=== PATIENT | female | born 1965 | race Caucasian/White ===

== ENCOUNTER → 2018-10-17 17:35 | Outpatient (CLI) | payer OTHER, SELFPAY | PROVIDERS: Family Provider Family Medicine; PCP Family Medicine; Referring Provider Nurse Practitioner Family; Visit Provider Nurse Practitioner Family | DX: L02.91 Cutaneous abscess, unspecified (principal) | CPT/HCPCS: 87070; 87205 ==

== ENCOUNTER → 2018-11-08 11:55 | Outpatient (CLI) | payer OTHER, SELFPAY ==
--- NOTE | 2018-11-08 12:01 | RAD_ITS ---
STUDY: X-RAY CHEST REASON FOR EXAM: Female, 53 years old. Acute bronchitis. TECHNIQUE: PA and lateral views of the chest. COMPARISON: Prior comparison studies are not available for review at this time. FINDINGS: The lungs are clear and expanded. There is no demonstrated pleural abnormality. Normal size heart. Normal mediastinum and anastasia. Normal visualized pulmonary arteries. Normal visualized aortic arch and descending thoracic aorta. There are degenerative changes of the visualized thoracic spine. Normal visualized ribs, clavicles, and shoulders. There is no demonstrated abnormality of the visualized soft tissue structures of the upper abdomen. RAD/Chest PA and Lateral IMPRESSION: No active pulmonary disease. Electronically Signed: Mir Trujillo MD at 11:59 EDT Tel , Service support ,
== END ==
PROVIDERS: Family Provider Family Medicine; PCP Family Medicine; Referring Provider Family Medicine; Visit Provider Family Medicine
DX: J20.9 Acute bronchitis, unspecified (principal)
CPT/HCPCS: 71046

== ENCOUNTER → 2019-03-19 16:28 | Outpatient (CLI) | payer OTHER, SELFPAY ==
[2019-03-19 17:57] LABS: Anion Gap 7 (5-15); BUN 15 mg/dL (7-18); BUN/Creat Ratio 20.7 RATIO (10-20); Calcium,Total 8.8 mg/dL (8.5-10.1); Chloride 103 mmol/L (98-107); Creatinine, Serum 0.72 mg/dL (0.55-1.02); EST Glomerular Filtration Rate 90 mL/min (>60); Est Glom Filt Rate - Afr Amer 108 mL/min (>60); Glucose 99 mg/dL (74-106); Potassium 3.2 mmol/L (3.5-5.1); Sodium Level 136 mmol/L (136-145)
== END ==
PROVIDERS: Family Provider Family Medicine; PCP Family Medicine; Referring Provider Family Medicine; Visit Provider Nurse Practitioner Family
DX: I10 Essential (primary) hypertension (principal)
CPT/HCPCS: 36415; 80048

== ENCOUNTER → 2020-01-05 07:37 | Outpatient (CLI) | payer OTHER, SELFPAY ==
[2020-01-05 10:17] LABS: AST(SGOT) 21 U/L (15-37); Alanine Aminotransfer ALT/SGPT 23 U/L (13-56); Albumin, Serum 3.6 g/dL (3.2-5.0); Alkaline Phosphatase 90 U/L (45-117); Anion Gap 6 (5-15); BUN 13 mg/dL (7-18); BUN/Creat Ratio 19.8 RATIO (10-20); Calcium,Total 8.6 mg/dL (8.5-10.1); Chloride 106 mmol/L (98-107); Cholesterol 139 mg/dL (200); Creatinine, Serum 0.66 mg/dL (0.55-1.02); EST Glomerular Filtration Rate 100 mL/min (>60); Est Glom Filt Rate - Afr Amer 121 mL/min (>60); Globulin 3.6 g/dL (2.2-4.2); Glucose 111 mg/dL (74-106); High Density Lipoprotein 36 mg/dL; Potassium 3.8 mmol/L (3.5-5.1); Protein, Total 7.2 g/dL (6.4-8.2); Sodium Level 139 mmol/L (136-145); Triglycerides 138 mg/dL; Very Low Density Lipoprotein 28 mg/dL (5-40)
== END ==
PROVIDERS: PCP Family Medicine; Referring Provider Family Medicine; Visit Provider Family Medicine
DX: I10 Essential (primary) hypertension (principal)
CPT/HCPCS: 36415; 80053; 80061

== ENCOUNTER → 2020-04-20 | Outpatient (CLI) | payer OTHER, SELFPAY ==
--- NOTE | 2020-04-19 | TISS_PTH ---
PATIENT: NO HORNER LOC: [facility] U#:[id number] AGE/SX: 54/F ROOM: RE04/20/[address]: Dr. Connor Watson MD : 1965 BED: DIS: 04/20/2020 SPEC #: [id number] RECD: 04/20/20 13:06 STATUS: MARCUS KASIA #: [id number] BRITT: 04/19/20 00:[address]: Connor Watson DEPT: SURGICAL PATHOLOGY RECD BY: Nancy Felipe Tissues: TISSUE SURGICALLY REMOVED Procedures: Surgery Specimen Level IV HEADER OPERATION: Punch biopsy PRE-OP DIAGNOSIS: Skin neoplasm TISSUE SUBMITTED: Skin neoplasm MICROSCOPIC DIAGNOSIS Skin lesion, not further specified, punch biopsy: Mild dermal fibrosis. Separate fragment of keratin debris. See comment. AM:yamileth 04/21/20 COMMENT An inclusion cyst is likely. Clinical correlation is suggested. MICROSCOPIC DESCRIPTION Slides are reviewed. GROSS DESCRIPTION Received is one container labeled with the patient's name and not further designated. The specimen consists of a piece of edwards-brown skin measuring 0.7 x 0.5 x 0.5 cm. The skin surface shows verrucous changes. The specimen is inked, bisected and submitted entirely in one cassette. / SJ:rg 04/20/20 TC:5 CPT: 72202
== END | disposition home or self-care (01) ==
LOC: LABSPEC 10:04
PROVIDERS: PCP Family Medicine; Referring Provider Family Medicine; Visit Provider Family Medicine
DX: L90.5 Scar conditions and fibrosis of skin (principal)
CPT/HCPCS: 88305

== ENCOUNTER → 2020-08-13 | Outpatient (CLI) | payer OTHER, SELFPAY ==
--- NOTE | 2020-08-13 10:40 | LES_PTH ---
PATIENT: NO HORNER LOC: [facility] U#:[id number] AGE/SX: 54/F ROOM: RE08/13/[address]: Dr. Connor Watson MD : 1965 BED: DIS: 08/13/2020 SPEC #: [id number] RECD: 08/13/20 15:12 STATUS: MARCUS KASIA #: [id number] BRITT: 08/13/20 10:[address]: Connor Watson DEPT: SURGICAL PATHOLOGY RECD BY: Lidia Guillen Tissues: Skin, NOS Procedures: Surgery Specimen Level IV HEADER OPERATION: Biopsy PRE-OP DIAGNOSIS: Left ax, atypical mole TISSUE SUBMITTED: Left ax MICROSCOPIC DIAGNOSIS Skin and soft tissue, left ax, biopsy: Capillary hemangioma. AM:yamileth 08/17/2020 MICROSCOPIC DESCRIPTION Slides are reviewed. GROSS DESCRIPTION Received is one container labeled with the patient's name and not further designated. The specimen consists of dark edwards soft tissue measuring 0.7 x 0.3 x 0.3 cm. The specimen is inked, bisected and totally submitted in one cassette. / AM:yamileth 08/16/20 TC:5 CPT: 85100
== END | disposition home or self-care (01) ==
LOC: LABSPEC 15:27
PROVIDERS: PCP Family Medicine; Referring Provider Family Medicine; Visit Provider Family Medicine
DX: D22.5 Melanocytic nevi of trunk (principal)
CPT/HCPCS: 88305

== ENCOUNTER → 2020-10-08 07:59 | Outpatient (CLI) | payer OTHER, SELFPAY ==
[2020-10-08 10:22] LABS: Hemoglobin A1c 6.3 % (3.8-5.6)
[2020-10-08 10:34] LABS: AST(SGOT) 18 U/L (15-37); Alanine Aminotransfer ALT/SGPT 31 U/L (13-56); Albumin, Serum 3.7 g/dL (3.2-5.0); Alkaline Phosphatase 94 U/L (45-117); Anion Gap 5 (5-15); BUN 17 mg/dL (7-18); BUN/Creat Ratio 24.7 RATIO (10-20); Chloride 106 mmol/L (98-107); Cholesterol 166 mg/dL (200); Creatinine, Serum 0.69 mg/dL (0.55-1.02); EST Glomerular Filtration Rate 94 mL/min (>60); Est Glom Filt Rate - Afr Amer 114 mL/min (>60); Globulin 3.6 g/dL (2.2-4.2); Glucose 118 mg/dL (74-106); High Density Lipoprotein 42 mg/dL; Potassium 3.6 mmol/L (3.5-5.1); Protein, Total 7.3 g/dL (6.4-8.2); Sodium Level 138 mmol/L (136-145); Triglycerides 129 mg/dL; Very Low Density Lipoprotein 26 mg/dL (5-40)
== END ==
PROVIDERS: PCP Family Medicine; Referring Provider Family Medicine; Visit Provider Family Medicine
DX: I10 Essential (primary) hypertension (principal); R73.01 Impaired fasting glucose
CPT/HCPCS: 36415; 80053; 80061; 83036

== ENCOUNTER 2021-05-25 16:00 | Outpatient (RCR) | payer OTHER, SELFPAY ==
--- NOTE | 2021-04-08 09:00 | HP.PTEVAL ---
Patient's Visit Information NO HORNER is a 55 year old F referred to Physical Therapy by ROBERTO CERNA with a diagnosis of R achilles tendonitis.. Date of Evaluation: 04/08/21 Physical Therapist: Kd Fan, BENITA, OCS, CSCS - Visit Plan Frequency: 2-3x /Week Duration: 4-6 Weeks Plan: 2-3x/week for 4 -6 weeks for... 1. US non thermal to R achilles. 2. rollout and stretch gastroc soleus R. 3. eccentric strength R achilles to otlerance. Consider EPAT and or iontophoresis if patient desires(uncoverd by insurance). Heel lift R shoe to diminish stress and activitiy modification, temporary heel lift put in and patient may need more permanent solution. - Subjective Has heel spurs on R achilles. 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 It has hurt for about a year insidiously. Pain is R achilles s 9/10 with standing and walking alot. Pretty comfortable at rest. It is hard to walk, very stiff in morning and takes extra time. Sleeping is OK. Has a cream to put on it from doctor Diclofenac. It seems to help a little bit. No other treatments. Had laser therapy at doctors office and it may have helped a little bit. Works at [employer] at [employer] on feet 8 hour shifts , worse after shift. Hobbies: Take care of mom with demential. Doing dishes and housework at home is paiful. Steps at home are painful to do them. Basic ADLs are getting doen but painfully. - Pain R achilles Pain Intensity (Out of 10): 0 Pain Intensity Range: 0, 9 - Objective Walks I but R antralgia, avoiding pushoff and avoids heel on floor with stance. Trasnfers I. Steps I with rail but painful and avoids R eccentric lowering. Unable to heel rasie R due to pain. Obvious nodule distal R achilles at insertion whcih is tender. AROM -5 B DF due to tightness in B achilles. Not painful today. Other ankle ROM are symmetrical but tight. Ankle strength 4+/5 all motions B except R PF whcih is 3+ and painful. Gastroc and soleus are max tight B today without pain with stretching. reflexes 2/3 patella and achilles. SLS is able B 10 sec eo, harder on R. - Balance/Special Test Scores Lower Extremity Functional Score: 46 - Goals Goal 1:: 0 degree B DF aROM to help relieve stress R achilles insertion Goal Time Frame: 4-6 Weeks Goal 2:: Able to stand flat footed without pain and walk without antalgia in community Goal Time Frame: 4-6 Weeks Goal 3:: I management of condtioon Goal Time Frame: 4-6 Weeks Goal 4:: Improve pain to 1/10 at worst and 80% to help avoid surgery. Goal Time Frame: 4-6 Weeks - Rehabilitation Potential Physical Therapy Diagnosis: R achilles tendoinits pain and limited function. Rehabilitation Potential: Fair - Anticipated Interventions Patient/Client Instruction: Educate patient on: Condition, Plan of Care For the Purpose of:: To decrease pain, To decrease swelling/inflammation, To improve muscle performance and motor function, To increase tolerance to activity/condition/position Therapeutic Exercise to Include: Strength training, Flexibilty training, Gait and locomotor training, Passive ROM, Active ROM For the Purpose of:: To decrease pain, To decrease swelling/inflammation, To increase ROM, To improve muscle performance and motor function, To increase tolerance to activity/condition/position, To improve ability of physical actions for home/community/work/leisure, To improve health of tissue Manual Therapy Techniques to Include: Mobilization, Soft tissue mobilization For the Purpose of:: To decrease pain, To increase ROM, To improve muscle performance and motor function Ultrasound (thermal/non thermal): Yes - nonthermal For the Purpose of:: To decrease pain, To decrease swelling/inflammation Thank you for the opportunity to evaluate your patient. For Medicare and Medicare HMO plans, please review the plan of care and approve it. It will need to be FAXED BACK to us at [phone] for Medicare purposes. For Medicare only, by signing this I certify the plan of care. Please let me know if there are questions or concerns regarding this plan of care. Physician Signature: Date:
--- NOTE | 2021-05-25 16:31 | HP.PTDCSUM ---
It has been my pleasure to treat NO HORNER referred by ROBERTO CERNA, with the diagnosis of R achilles tendonitis. for a total of 12 visit(s). Discharge Date: 05/25/21 Please see the following information for a summary of their discharge status. Subjective: Missed yesterday due to car problem. No pain lately. Stiffness persists mostly on steps and when walking. Stretching can help relieve for a short time. Morning is very stiff also. Sleep is OK. Activities at home pretty normal. F/U with doctor next Sunday. still doing exercises wall stretch, ecc and SLS. R achilles Pain Intensity (Out of 10): 0 % Improvement: 80 Objective/Function: 0 DF R still very tight but not painful. Ev and inv WFL and strength 4/5, PF 4+ and no pain, DF 4 and no pain. Walking normal today and able to heel raise without pain. Overall doing well with pain but stiffness persists. Goal 1:: 0 degree B DF aROM to help relieve stress R achilles insertion Goal Progress: Goal Met Goal 2:: Able to stand flat footed without pain and walk without antalgia in community Goal Progress: Goal Met Goal 3:: I management of condtioon Goal Progress: Goal Met Goal 4:: Improve pain to 1/10 at worst and 80% to help avoid surgery. Goal Progress: Goal Met Plan: d/c to HEP, pt doing eccentrics, gastroc/soleus stretches, SLS, and dips. Will see doctor next week and may benefit form night splint or enrique splint if tightness is a problem. Discharge Comments: Pt to [facility] and f/u with doctor next week. Also wearing slight heel lift to help with pain. If there are questions or concerns regarding this patient's physical therapy, please feel free to call me at [phone]. Thank you for the referral of this patient. Sincerely, Kd Fan, DPT, OCS, CSCS Balance/Gait/Functional tests - Balance/Special Test Scores Lower Extremity Functional Score: 78
== END 2021-05-25 19:00 | disposition home or self-care (01) ==
LOC: PT 16:00
PROVIDERS: PCP Family Medicine
DX: M76.61 Achilles tendinitis, right leg (principal)
CPT/HCPCS: 97035; 97110; 97140; 97162; 97164

== ENCOUNTER → 2021-06-09 | Outpatient (CLI) | payer OTHER, SELFPAY | END | disposition home or self-care (01) | PROVIDERS: PCP Family Medicine; Referring Provider Nurse Practitioner Family; Visit Provider Nurse Practitioner Family | DX: J06.9 Acute upper respiratory infection, unspecified (principal) | CPT/HCPCS: 87633 ==

== ENCOUNTER 2021-08-01 11:32 | Outpatient (CLI) | payer OTHER, SELFPAY ==
--- NOTE | 2021-08-01 11:59 | RAD_ITS ---
STUDY: X-RAY - PELVIS AND LEFT HIP REASON FOR EXAM: Female, 55 years old. PAIN TECHNIQUE: 3 views of the pelvis and hip. COMPARISON: None. FINDINGS: There is a non-specific bowel gas pattern. Normal visualized soft tissue structures. Normal bilateral iliac wings, sacroiliac joints and visualized sacrum. Normal bilateral superior and inferior pubic rami. Normal pubic symphysis. Normal bilateral ischial tuberosities. Normal visualized femoral head. Normal acetabulum. Normal hip joint. RAD/HIP, UNI W/ Pelvis 2-3 Views IMPRESSION: Normal x-ray examination of the pelvis and hip. Electronically Signed: Yannick Gerber MD at 15:52 EST ,
[2021-08-01 16:03] LABS: Hemoglobin A1c 6.4 % (3.8-5.6)
[2021-08-01 16:04] LABS: Anion Gap 6 (5-15); BUN 15 mg/dL (7-18); BUN/Creat Ratio 21.9 RATIO (10-20); Calcium,Total 9.5 mg/dL (8.5-10.1); Chloride 104 mmol/L (98-107); Creatinine, Serum 0.68 mg/dL (0.55-1.02); EST Glomerular Filtration Rate 94 mL/min (>60); Est Glom Filt Rate - Afr Amer 114 mL/min (>60); Glucose 86 mg/dL (74-106); Potassium 3.9 mmol/L (3.5-5.1); Sodium Level 136 mmol/L (136-145)
== END 2021-08-01 23:59 | disposition short-term general hospital (02) ==
PROVIDERS: PCP Nurse Practitioner Family; Referring Provider Nurse Practitioner Family; Visit Provider Nurse Practitioner Family
DX: R73.01 Impaired fasting glucose (principal); M25.552 Pain in left hip
CPT/HCPCS: 36415; 73502; 80048; 83036

== ENCOUNTER 2021-08-08 14:52 | Outpatient (RCR) | payer OTHER, SELFPAY ==
--- NOTE | 2021-08-08 15:55 | HP.PTEVAL_ITS ---
Patient's Visit Information NO HORNER is a 55 year old F referred to Physical Therapy by SUMIT Mora with a diagnosis of L hip pain. Date of Evaluation: 08/08/21 Physical Therapist: Kd Fan DPT, OCS, CSCS - Visit Plan Frequency: 3x /Week Duration: 4-6 Weeks Plan: 3x/week for 4 weeks for. 1. stretch and STM to L pirifromis and ITB. 2. lumbar flexion mobs and ROM. 3. NS core strength and emphasis on activitiy modification with NS. - Subjective L hip for a couple months insidiously. It started tingling months ago and then went numb and burny. Intermittent and brought on maybe with standing. Pain is outside front at hip and had x rays which were normal. Will try therapy before MRI. Pain is to 5/10 and rates 0-8/10. 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 Goes away overnight. Sleep is not a big problem, wakes up feeling better. Uses cream and biofreeze which help a little bit. Acitivities at home are normal, just painful if up too much. Tyleno helps. Basic ADLS are getting done. No back problems. No pain. - Pain L hip Pain Intensity (Out of 10): 5 Pain Intensity Range: 0, 8 - Objective Walks with R antalgia due to continued R foot pain. L side not hurting today and I with gait and steps without hip pain. LB AROM ext causes burning pain, fl exion is max tight, SB are symmetrical and no pain. refelxes 1/3 patella and achilles B. Sensation WNL to gross light touch in LE. strength LE 4- ankles, 4 in knees and 4- in hips flexion 3+ in abd and ext B. No myotomal problems. No c/o bowel or bladder issues. Tender to palapation L ITB and piriformis and into laterquad moderately. tightness obvious L to R in ITB and piriformis. - CAMRON, -FADDIR - Balance/Special Test Scores Lower Extremity Functional Score: 62 - Goals Goal 1:: Full lumbar ext without L hip numby, feel 75% better overall in L hip Goal Time Frame: 4-6 Weeks Goal 2:: Full day at work without any lingering L hip pain. Goal Time Frame: 4-6 Weeks Goal 3:: I approp HEP and posture to minimize future problems. Goal Time Frame: 4-6 Weeks - Rehabilitation Potential Physical Therapy Diagnosis: L hip pain likely lumbar in nature and effecting comfort at work. Rehabilitation Potential: Fair - Anticipated Interventions Patient/Client Instruction: Educate patient on: Condition, Plan of Care For the Purpose of:: To decrease pain, To increase ROM, To improve muscle performance and motor function, To increase tolerance to activity/condition/position, To improve ability of physical actions for home/community/work/leisure Therapeutic Exercise to Include: Strength training, Flexibilty training, Gait and locomotor training, Passive ROM, Active ROM, Dynamic Lumbar Stabilization For the Purpose of:: To decrease pain, To increase ROM, To improve muscle performance and motor function, To increase tolerance to activity/condition/position, To improve ability of physical actions for home/community/work/leisure, To improve gait and locomotor functions Manual Therapy Techniques to Include: Mobilization, Passive ROM, Soft tissue mobilization For the Purpose of:: To decrease pain, To increase ROM, To improve muscle performance and motor function, To increase tolerance to activity/condition/position, To improve ability of physical actions for home/community/work/leisure, To improve gait and locomotor functions Thank you for the opportunity to evaluate your patient. For Medicare and Medicare HMO plans, please review the plan of care and approve it. It will need to be FAXED BACK to us at [phone] for Medicare purposes. For Medicare only, by signing this I certify the plan of care. Please let me know if there are questions or concerns regarding this plan of care. Physician Signature: Date:
--- NOTE | 2021-10-24 07:37 | HP.PT.NRP ---
NO HORNER was seen in my office for initial evaluation on 08/08/21. The following Plan of Care was established for this patient: Initial Frequency: 3x /Week Initial Duration: 4-6 Weeks Patient/Client Instruction: Educate patient on: Condition, Plan of Care For the Purpose of:: To decrease pain, To increase ROM, To improve muscle performance and motor function, To increase tolerance to activity/condition/position, To improve ability of physical actions for home/community/work/leisure Therapeutic Exercise to Include: Strength training, Flexibilty training, Gait and locomotor training, Passive ROM, Active ROM, Dynamic Lumbar Stabilization For the Purpose of:: To decrease pain, To increase ROM, To improve muscle performance and motor function, To increase tolerance to activity/condition/position, To improve ability of physical actions for home/community/work/leisure, To improve gait and locomotor functions Manual Therapy Techniques to Include: Mobilization, Passive ROM, Soft tissue mobilization For the Purpose of:: To decrease pain, To increase ROM, To improve muscle performance and motor function, To increase tolerance to activity/condition/position, To improve ability of physical actions for home/community/work/leisure, To improve gait and locomotor functions This patient was last seen in our office 08/12/21. Pertinent comments regarding their Physical therapy will appear below: Pt seen one visit and approval was received for POC. Pt did not return calls to schedule. At this point, it has been over 2 months and I will discontinue due to nonattendance. At this point I will be discontinuing this patient from physical therapy. I would be happy to see this patient again in the future if found appropriate by the physician. Thank you! Kd Fan, DPT, OCS, CSCS Balance/Gait/Functional tests - Balance/Special Test Scores Lower Extremity Functional Score: 62
== END 2021-08-08 19:00 | disposition home or self-care (01) ==
LOC: PT 14:52
PROVIDERS: PCP Nurse Practitioner Family; Referring Provider Nurse Practitioner Family; Visit Provider Nurse Practitioner Family
DX: M25.559 Pain in unspecified hip (principal)
CPT/HCPCS: 97110; 97161

== ENCOUNTER 2021-08-30 16:21 | Outpatient (CLI) | payer OTHER, SELFPAY ==
--- NOTE | 2021-08-30 16:24 | RAD_ITS ---
STUDY: XR Shoulder Min 2 Views REASON FOR EXAM: Female, 55 years old. PAIN TECHNIQUE: XR Shoulder Min 2 Views COMPARISON: None. FINDINGS: Normal glenohumeral articulation. Normal acromioclavicular joint. Normal acromion. Normal humeral head and visualized proximal humerus. The soft tissue structures are unremarkable. Normal visualized pulmonary apex. RAD/Shoulder min 2 Views IMPRESSION: There are no acute findings of the shoulder. Electronically Signed: Chandan Angulo MD at 16:56 EST ,
== END 2021-08-30 23:59 | disposition home or self-care (01) ==
LOC: MTRAD 16:23
PROVIDERS: PCP Family Medicine; Referring Provider Family Medicine; Visit Provider Family Medicine
DX: M25.512 Pain in left shoulder (principal)
CPT/HCPCS: 73030

== ENCOUNTER → 2022-09-25 | Outpatient (CLI) | payer OTHER, SELFPAY ==
[2022-09-25 17:55] LABS: Absolute Lymphocyte Count 1.57 X10^3/uL (0.83-4.51); Absolute Neutrophil Count 4.8 X10^3/uL (2.0-7.7); Basophil# 0.04 X10^3/uL; Basophil% 0.6 % (0-1); Eosinophil# 0.15 X10^3/uL; Eosinophils% 2.2 % (0-5); Hematocrit 44.8 % (37-47); Hemoglobin 14.9 g/dL (12.0-15.0); Lymphocyte # 1.57 X10^3/ul (0.83-4.51); Lymphocyte % 22.8 % (19-41); Mean Corp Hgb Conc 33.3 g/dL (32-36); Mean Corpuscular Hgb 28.3 pg (27.0-32.0); Mean Corpuscular Volume 85.2 fL (81-99); Mean Platelet Vol. 9.6 fl (6.2-12.0); Monocyte# 0.36 X10^3/uL; Monocyte% 5.2 % (0-10); NRBC Flagged by Analyzer 0 % (0-5); Neutrophil # 4.76 X10^3/uL (2.7-7.7); Neutrophil % 69.1 % (47-70); Platelet Count 264 K/mm3 (150-450); RBC Distribution Width CV 12.9 % (11.6-14.6); RBC Distribution Width SD 39.8 fl (35.1-43.9); Red Blood Count 5.26 M/mm3 (4.2-5.4); White Blood Count 6.9 K/mm3 (4.4-11.0)
[2022-09-25 18:44] LABS: Microalbumin,Random Urine 17.1 mg/L (NO RANGE EST.)
[2022-09-25 18:45] LABS: ALB/GLOB Ratio 1.1 RATIO (0.9-2.4); AST(SGOT) 29 U/L (15-37); Alanine Aminotransfer ALT/SGPT 42 U/L (13-56); Albumin, Serum 3.9 g/dL (3.2-5.0); Alkaline Phosphatase 94 U/L (45-117); Anion Gap 9 (5-15); BUN 13 mg/dL (7-18); BUN/Creat Ratio 17.9 RATIO (10-20); Chloride 105 mmol/L (98-107); Cholesterol 160 mg/dL (200); Creatinine, Serum 0.73 mg/dL (0.55-1.02); EST Glomerular Filtration Rate 88 mL/min (>60); Est Glom Filt Rate - Afr Amer 106 mL/min (>60); Globulin 3.7 g/dL (2.2-4.2); Glucose 152 mg/dL (74-106); High Density Lipoprotein 37 mg/dL; Potassium 3.6 mmol/L (3.5-5.1); Protein, Total 7.6 g/dL (6.4-8.2); Sodium Level 140 mmol/L (136-145); Triglycerides 351 mg/dL; Very Low Density Lipoprotein 70 mg/dL (5-40)
[2022-09-25 20:38] LABS: Hemoglobin A1c 6.5 % (3.8-5.6)
== END | disposition home or self-care (01) ==
LOC: MFPLAB 14:52
PROVIDERS: PCP Family Medicine; Visit Provider Family Medicine
DX: I10 Essential (primary) hypertension (principal); E11.9 Type 2 diabetes mellitus without complications
CPT/HCPCS: 36415; 80053; 80061; 82043; 83036; 85025

== ENCOUNTER → 2022-11-15 | Outpatient (CLI) | payer OTHER, SELFPAY ==
--- NOTE | 2022-11-15 12:50 | CT_ITS ---
INDICATION: FAM HX CAD EXAMINATION: CT CHEST WITHOUT CONTRAST - CT Chest W/O Contrast Injection. Cardiac or renal examination. TECHNIQUE: Helically acquired images were obtained of the chest. A radiation dose optimization technique was used for this scan. IV Contrast dosage and agent: None. COMPARISON: None. FINDINGS: LUNGS, PLEURA AND LARGE AIRWAYS: No masses, consolidation, or edema. No pleural effusion or thickening. No pneumothorax. THYROID: No thyroid lesions. HEART AND PERICARDIUM: Heart size is normal. No pericardial effusion. CORONARY ARTERIES: Coronary artery calcification mild degree of coronary artery calcification. VESSELS: Thoracic aorta is not dilated. MEDIASTINUM AND JUDAH: Small benign appearing mediastinal lymph nodes. Esophagus is unremarkable. No hiatal hernia. UPPER ABDOMEN: Findings suggestive of fatty infiltration of the liver. BONES: No suspicious lytic or blastic abnormality. CT/Limited Chest CT Cardiac Only IMPRESSION: No acute abnormality is seen. Electronically Signed: Yannick Gerber MD at 14:04 EDT ,
--- NOTE | 2022-11-15 16:47 | CCTA_ITS ---
Calcium Scoring Date of Study:: 11/15/22 Indications Indications: Family history of coronary disease Coronary Calcium Scoring: High-resolution Computed Tomographic imaging of the chest was performed on [11/15/22 ], with particular attention paid to the coronary arteries. Images from the examination were analyzed for the presence and extent of coronary artery calcification , using coronary calcium quantification software. The patient willian rated the procedure well and there were no complications. The results of the coronary calcification analysis are provided below. Findings Coronary Artery Left Main (LM): 0 Left Anterior Descending (LAD): 0 Left Circumflex (LCX): 0 Right Coronary Artery (RCA): 0 Total Agatston Score: 0 Percentile Rankin th Calcium Scoring Interpretation: Different methods to categorize the overall amount of coronary plaque. Overall amount CAC SIS Visual of coronary plaque P1 Mild -100 <2 1-2 vessels with mild amount of plaque P2 Moderate 101-300 3-4 1-2 vessels with moderate amount, 3 vessels with mild amount of plaque P3 Severe 301-999 5-7 3 vessels with moderate amount, 1 vessel with severe amount of plaque P4 Extensive >1000 >8 2-3 vessels with severe amount of plaque Conclusion: No atherosclerotic plaquing noted
== END | disposition home or self-care (01) ==
PROVIDERS: PCP Family Medicine; Referring Provider Family Medicine; Visit Provider Family Medicine
DX: Z13.6 Encounter for screening for cardiovascular disorders (principal); Z82.49 Family history of ischemic heart disease and other diseases of the circulatory system
CPT/HCPCS: 75571; 76380

== ENCOUNTER → 2022-12-12 | Outpatient (CLI) | payer OTHER, SELFPAY | END | disposition home or self-care (01) | PROVIDERS: PCP Family Medicine; Visit Provider Family Medicine | DX: L72.9 Follicular cyst of the skin and subcutaneous tissue, unspecified (principal) | CPT/HCPCS: 87070; 87077; 87186; 87205 ==

== ENCOUNTER 2022-12-21 08:43 | Outpatient (RCR) | payer OTHER, SELFPAY ==
[2022-12-21 08:53] VITALS: BP 130/74; PULSE 83; RESP 18; TEMP 36.4
--- NOTE | 2022-12-21 13:10 | PCM.WC.HP ---
History of Present Illness Date of Service: 12/21/22 Chief Complaint: S/p Abscess I and D History of Wound: Ms. Granda is a 57-year-old who was referred to the wound center by her primary care physician status post incision and drainage of a back abscess. Incision and drainage was uneventful and due to unavailability of help with wound packing, she has been going over to her primary care physician's office for this. Subsequently referred to this facility. She denies any significant pain around the area. History of diabetes mellitus currently on metformin and she believes that her last A1c was around 6.5. Feels well otherwise. [facility], [facility] Medical History (Updated 12/21/22 @ 14:[address] Karishma Camacho MD) Open back wound Type 2 diabetes mellitus Home Medications lisinopril 12/21/22 [History Last Taken Unknown] metformin 500 mg tablet 500 mg PO DAILY 12/21/22 [History Last Taken Unknown] potassium chloride 2.5 mEq tablet meq PO 12/21/22 [History Last Taken Unknown] Allergy/AdvReac Type Severity Reaction Status Date / Time No Known Allergies Allergy Verified 12/21/22 09:08 Family History Other CVA (cerebral vascular accident) Diabetes Hypertension Social History Smoking Status: Never smoker ROS Constitutional Constitutional: Denies fatigue, frequent falls, headache(s), increased appetite, lethargy, malaise or night sweats Eyes Eyes: Denies acute decrease in peripheral vision, blind spots, bloody eye, change in eye color, change in vision, discongugate gaze or double vision ENT HEENT: Denies dysphagia, ear discharge, ear pain, epistaxis, foreign body in nose, halitosis or headache(s) Cardiovascular Cardiovascular: Denies cold extremities, cyanosis, diaphoresis, dizziness, dyspnea at rest, erythema on extremities or fatigue Respiratory/Chest Respiratory/Chest: Denies dyspnea on exertion, hemoptysis, hoarseness, inability to speak, mouth breathing or nail bed cyanosis Gastrointestinal Gastrointestinal: Denies coffee ground emesis, cramping, dry heaves, dysphagia, excessive flatus or hematemesis Genitourinary Genitourinary: Denies abdominal discomfort or flank pain Musculoskeletal Musculoskeletal: Denies abnormal gait, atrophy, muscle weakness, numbness or tremors Integumentary Integumentary: Denies change in pigmentation, changing lesions, erythema, furuncle, non-healing lesions or skin swelling Neurologic Neurologic: Denies behavior changes, convulsions, disequilibrium, dizziness, focal weakness, lack of coordination, loss of vision, memory loss or numbness Psychiatric Psychiatric: Denies auditory hallucinations, behavioral changes, difficulty concentrating, hallucinations, tactile hallucinations or visual hallucinations Endocrine Endocrinology: Denies deepening of the voice, excessive sweating, flushing, heat intolerance or increase in ring/shoe/hat size Allergic/Immunologic Allergic/Immunologic: Denies itchy eyes, lip swelling, throat swelling, tongue swelling or wheezing Vital Signs Vital Signs Vital Signs: 12/21/22 08:53 Temperature 97.5 F L Temperature Source Temporal Pulse Rate 83 Respiratory Rate 18 Blood Pressure 130/74 H Blood Pressure Mean 92 Blood Pressure Source Monitor Physical Exam Const alert, oriented x3 and no apparent distress General Appearance: cooperative and comfortable HEENT normocephalic and head/scalp atraumatic Eyes EOMs intact bilaterally Neck full ROM General: normal visual inspection Resp normal respiratory effort and normal air movement Effort and Inspection: able to speak in complete sentences GI non-tender Skin Wounds: wounds noted Neuro oriented x3, CN's II-XII intact bilaterally and moves all extremities Psych mental status grossly normal, thought process normal, cooperative and affect normal Debridement Note Debridement Note Wound debrided: Mid Back Type of Debridement: Excisional debridement Anesthesia Used: 4% Lidocaine Solution Depth: Down to and including healthy tissue and in the subcutaneous layer Percentage of wound debrided: 100 Instrument Used: 3mm curette Tissue Removed: Devitalized tissue Severity: Fat Layer Exposed Amount of bleeding with debridement: Mild Bleeding Controlled with: Pressure Post-Debridement Measurements and Additional Note: Post-Debridement Measurements/Treatment EDINSON - Nurse 1 - General Ulcer Assessment Start: 12/21/22 08:50 Freq: Status: Active Protocol: KAI Activity Type Activity Date Activity User E-sign Co-sign Detail Recorded Client Recorded Date Recorded By Document 12/21/22 08:53 DL [id number] 12/21/22 09:06 DL 12/21/22 08:53 EDINSON - Today's Visit Information Type of service Initial Visit Arrival Mode Ambulatory Transfer Assistance None Patient Identification Verified (Name & Yes ) Patient Requires Transmission-Based No Precautions Vital Signs Temperature (97.8 F-99.1 F) 97.5 F L Temperature Source Temporal Pulse Rate (60-100) 83 Pulse Location Monitor Respiratory Rate (12-18) 18 Respiratory rate source Observation Blood Pressure (90/60-120/80) 130/74 H Blood Pressure Mean 92 Source Monitor Pain Scale: 0-10 Numeric Is Patient Pain Free? Yes Communication Assessment Preferred language [place] Able to Read Yes Able to Write Yes Communication Tools None Right Hearing Abillity Normal Left Hearing Abillity Normal Visual Assistive Devices Glasses Teaching Assessment Preferences Verbal,Written, Demonstration Barriers to Learning None Readiness To Learn Good Willingness to Engage in Self Management Med Activies Readiness to Engage in Self Management Med Activities Anxiety Level Calm Cooperation Cooperative Perception Coherent Interest in Health Problem Asks Questions Education Importance Acknowledges Need Does Patient Smoke tobacco or other No substances Smoking Status Never smoker Is Patient Diabetic Yes Functional Assessment Recent Decline in Ability to Perform Denies Any Declines Culture/Mosque/Hyperion Analyst Cultural/Mosque Needs that may affect No Treatment Plan Would you allow our hospital solder making supervisor to No meet you for the purpose of spiritual/ emotional support? Hyperion Analyst to contact place of restorationist No Teaching: Wound Center Skin Care -Person Taught Patient Dressing Your Wound -Person Taught Patient Discharge Instructions -Person Taught Patient *Welcome to the Wound Center -Person Taught Patient WC - Nurse 1 - General Ulcer Measurement Start: 12/21/22 08:50 Freq: Status: Active Protocol: Activity Type Activity Date Activity User E-sign Co-sign Detail Recorded Client Recorded Date Recorded By Document 12/21/22 08:53 DL [id number] 12/21/22 09:06 DL 12/21/22 08:53 Wound Center Nurse 1 #1 Mid Back -Current Size (cm) - Length 0.3 -Current Size (cm) - Width 0.6 -Current Size (cm) - Depth 2 -Total Square Cm 0.18 -Photo Taken Yes -Exudate Amt Small -Exudate Type Serosanguineous -Wound Margin Distinct, Outline Attached -Granulation Amt Small (1-33%) -Granulation Quality Red -Necrosis Amt None Present (0 %) -Structure Exposed N/A -Texture (Shilpi-wound Skin Appearance) Localized Edema -Moisture (Shilpi-wound Skin Appearance) No Abnormality -Color (Shilpi-wound Skin Appearance) Ecchymosis -Temperature (Shilpi-wound Skin No Abnormality Appearance) (Pt Warm) -Tenderness on Palpation (Shilpi-wound No Skin Appearance) -Ulcer Cleansing Soap and Water -Foul Odor after Cleansing No -Anesthetic Used 5% Lidocaine Gel WC - Nurse 2 - General Ulcer CM Notes Start: 12/21/22 08:50 Freq: Status: Active Protocol: Activity Type Activity Date Activity User E-sign Co-sign Detail Recorded Client Recorded Date Recorded By Document 12/21/22 09:39 MW [id number] 12/21/22 09:49 MW 12/21/22 09:39 Wound Center Nurse 2 -Time 09:44 -Correct Patient Yes -Correct Side, Site, Position Yes -Correct Procedure Yes -Procedure Performed Yes -Type of Procedure Debridement -Clinical Debridement Subcutaneous -Tissue Removed Subcutaneous -Post Debridement (cm) - Length 0.3 -Post Debridement (cm) - Width 0.8 -Post Debridement (cm) - Depth 2.0 -Total Square (Post) (cm) 0.24 -Area of Debridement (cm) - Length 0.3 -Area of Debridement (cm) - Width 0.8 -Total Square (Area) (cm) 0.24 -Tunneling No -Undermining/Tunneling No -Circular Undermining No -Wound/Ulcer Outcome Not Healed -Ulcer Cleansing Rinsed/ Irrigated with Saline -Foul Odor after Cleansing No -Bioengineered Tissue No -Bleeding Controlled with Pressure -Treatment Response Procedure Tolerated Well -Offloading No -Debridement - Subq, 1st 20sq cm Yes Pain Scale: 0-10 Numeric Is Patient Pain Free? Yes - Nurse 3 - General Ulcer D/C NN Start: 12/21/22 08:50 Freq: Status: Active Protocol: Activity Type Activity Date Activity User E-sign Co-sign Detail Recorded Client Recorded Date Recorded By Document 12/21/22 09:55 BM [id number] 12/21/22 09:55 BM Document 12/21/22 10:40 DL [id number] 12/21/22 10:41 DL 12/21/22 12/21/22 09:55 10:40 Wound Care Center Nurse 3 #1 Mid Back -Ulcer Cleansing Rinsed/ Rinsed/ Irrigated with Irrigated with Saline Saline -Foul Odor after Cleansing No No -Primary Dressing Applied Mepilex Border, Mepilex Border, Nugauze, Nugauze, Iodoform 1/4in Iodoform 1/4in -Other Dressing per dl loan supervisor -Mepilex Border 1 1 -Nugauze, Iodoform 1/4in 1 1 Treatment Response Procedure Procedure Tolerated Well Tolerated Well Pain Scale: 0-10 Numeric Is Patient Pain Free? Yes Yes WC - Visit Discharge Discharge Condition Stable Stable Ambulatory Status Ambulatory Ambulatory Transportation Private Auto Private Auto Charges/Coding Visit Charges Office Visits / Consults: 35620 OV L3 New Procedures Integumentary 111xxx-113xx: 05136 Altagracia subq tissue 20 sq cm/< Assessment/Plan Assessment/Plan (1) Open back wound: CODE(S): S21.209A - Unspecified open wound of unspecified back wall of thorax without penetration into thoracic cavity, initial encounter (2) Type 2 diabetes mellitus: CODE(S): E11.9 - Type 2 diabetes mellitus without complications PLAN: Plan Debridement done as documented above, procedure was well-tolerated. Lengthy discussion had with patient, difficulty with finding someone to help with her wound dressing, she was advised to come in for a nurse visit every other day to have the wound packed. We will pack with iodoform and cover with foam dressing. Optimal diabetes control discussed and increased protein intake to help with wound healing, she voiced understanding. Her questions were answered and she was advised to let us know if she has any further questions or concerns. Follow-up in 2 weeks or sooner if needed. This note was generated with Quitbit dictation software. It may contain incorrect words, spelling, and punctuation that were not noted in checking the note before signing.
== END 2022-12-29 23:59 | disposition home or self-care (01) ==
LOC: WC 08:43
PROVIDERS: PCP Family Medicine; Referring Provider Family Medicine; Visit Provider Internal Medicine
DX: L02.212 Cutaneous abscess of back [any part, except buttock and flank] (principal); E11.9 Type 2 diabetes mellitus without complications; Z79.84 Long term (current) use of oral hypoglycemic drugs; S21.209A Unspecified open wound of unspecified back wall of thorax without penetration into thoracic cavity, initial encounter; X58.XXXA Exposure to other specified factors, initial encounter
CPT/HCPCS: 11042; 99213; G0463

== ENCOUNTER → 2023-07-24 | Outpatient (CLI) | payer OTHER, SELFPAY ==
--- NOTE | 2023-07-24 14:37 | RAD_ITS ---
INDICATION: PAIN EXAMINATION/TECHNIQUE: X-RAY - XR Pelvis 1 or 2 Views COMPARISON: Prior study dated: 08/01/2021 is FINDINGS: PELVIC BONES: No displaced fracture, destructive or sclerotic lesions. Note that overlapping bowel shadows may however obscure fine detail. Sacroiliac joints are unremarkable. Questionable slight irregularity/fragmentation of the pubic symphysis. There is also slight widening of the pubic symphysis measuring 7 mm. HIPS: The articular structures are unremarkable. No displaced fracture seen in this frontal view. SOFT TISSUES: No soft tissue swelling or gas. RAD/Pelvis 1 or 2 Views IMPRESSION: No evidence of displaced pelvic or hip fracture. Questionable slight irregularity/fragmentation of the pubic symphysis with slight widening. This could represent early osteitis pubis. Electronically Signed: Stan Singh MD at 0:18 EST ,
--- OUTSIDE RECORDS SUMMARY | 2023-07-24 14:59 | XMS RPT_ITS | CCD ---
Author Name Unknown Address [address] [place] [address] Organization [facility] Care Team Providers Care Finance Controller Name Role Phone JOAQUÍN GAYLE Unavailable Unavailable IMCA Unavailable Unavailable ROSANNA KOROMA Unavailable Unavailable JOAQUÍN GAYLE JR GENE Unavailable Unavaila ble RAMAKRISHNA BRITT (VP [employer]) Unavailable Unavailabl e Problems Problem Classification Problem Date Documented Da te Episodic/Chronic Abdominal pain (2 sources) Unspecified abdominal pain; Translations: [Unspecified abdominal pain] Onset: 01-31-2018 Episodic Unclassified (1 source) Unknown / UNK(Unknown) Onset: 01-31-2018 Results Test Name Value Interpretation Reference Range Facil ity Encounters Encounter Date Encounter Type Care Provider Facility Start: 01-31-2018 End: 01-31-2018 Patient encounter JOAQUÍN GAYLE Facility:[facility] Payers Date Payer Category Payer Policy ID Medicaid [id number] Summary Purpose Family History No Family History Records FoundNo Family History Records Found Advance Directives No Advanced Directives Records FoundNo Advanced Directives Records Found Additional Source Comments INFORMATION SOURCE (unrecogn ized section and content) DATE CREATED AUTHOR AUTHOR'S ORGANIZ ATION 02/12/2018 [facility] FOR RECORDS PERTAINING TO PATIENTS WHO ARE OR HAVE BEEN ENROLLED IN A CHEMICAL DEPENDENCY/SUBSTANCEABUSE PROGRAM, SOME INFORMATION MAY BE OMITTED. This clinical summary was aggregated from multiple sources. Caution should be exercised in using it in the provision of clinical care. This summary normalizes information from multiple sources, and as a consequence, information in this document may materially change the coding, format and clinical context of patient data. In addition, data may be omitted in some cases. CLINICAL DECISIONS SHOULD BE BASED ON THE PRIMARY CLINICAL RECORDS. [employer] [facility]. provides no warranty or guarantee of the accuracy or completeness of information in this document.
[2023-07-24 18:03] LABS: Absolute Lymphocyte Count 1.49 X10^3/uL (0.83-4.51); Absolute Neutrophil Count 5.4 X10^3/uL (2.0-7.7); Basophil# 0.06 X10^3/uL; Basophil% 0.8 % (0-1); Eosinophil# 0.25 X10^3/uL; Eosinophils% 3.3 % (0-5); Hemoglobin 15.6 g/dL (12.0-15.0); Lymphocyte # 1.49 X10^3/ul (0.83-4.51); Lymphocyte % 19.5 % (19-41); Mean Corp Hgb Conc 33.2 g/dL (32-36); Mean Corpuscular Volume 84.2 fL (81-99); Mean Platelet Vol. 9.3 fl (6.2-12.0); Monocyte# 0.44 X10^3/uL; Monocyte% 5.7 % (0-10); NRBC Flagged by Analyzer 0 % (0-5); Neutrophil % 70.4 % (47-70); Platelet Count 269 K/mm3 (150-450); RBC Distribution Width CV 12.6 % (11.6-14.6); RBC Distribution Width SD 37.4 fl (35.1-43.9); Red Blood Count 5.58 M/mm3 (4.2-5.4); White Blood Count 7.7 K/mm3 (4.4-11.0)
[2023-07-24 18:17] LABS: ALB/GLOB Ratio 1.1 RATIO (0.9-2.4); AST(SGOT) 26 U/L (15-37); Alanine Aminotransfer ALT/SGPT 34 U/L (13-56); Albumin, Serum 4.3 g/dL (3.2-5.0); Alkaline Phosphatase 95 U/L (45-117); Anion Gap 9 (5-15); BUN 17 mg/dL (7-18); BUN/Creat Ratio 23.2 RATIO (10-20); Calcium,Total 9.5 mg/dL (8.5-10.1); Chloride 106 mmol/L (98-107); Creatinine, Serum 0.73 mg/dL (0.55-1.02); EST Glomerular Filtration Rate 87 mL/min (>60); Est Glom Filt Rate - Afr Amer 105 mL/min (>60); Globulin 3.9 g/dL (2.2-4.2); Glucose 85 mg/dL (74-106); Potassium 3.4 mmol/L (3.5-5.1); Protein, Total 8.2 g/dL (6.4-8.2); Rheumatoid Factor < 10.0 IU/mL (<15); Sodium Level 138 mmol/L (136-145)
[2023-07-24 18:26] LABS: Erythrocyte Sedimentation Rate 19 mm/hr (0-30)
[2023-07-24 18:53] LABS: Hepatitis B Surface Antibody Reactive; Hepatitis B Surface Antigen Non-Reactive (Nonreactive); Hepatitis C Antibody Non-Reactive (Nonreactive)
[2023-07-26 11:09] LABS: ANTINUCLEAR ANTIBODIES DIRECT Negative (Negative)
[2023-07-31 12:09] LABS: CCP IgG Antibodies 6 units (0-19); HLA B27 Negative (.)
== END | disposition home or self-care (01) ==
LOC: MTLAB 14:35
PROVIDERS: PCP Family Medicine; Referring Provider Internal Medicine Rheumatology; Visit Provider Internal Medicine Rheumatology
DX: M06.4 Inflammatory polyarthropathy (principal); M79.7 Fibromyalgia
CPT/HCPCS: 36415; 72170; 80053; 81374; 85025; 85652; 86038; 86140; 86200; 86431; 86706; 86803; 87340

== ENCOUNTER 2023-10-12 19:18 | Emergency (ER) | payer OTHER, SELFPAY ==
[2023-10-12 19:18] VITALS: BP 129/91; PULSE 88; RESP 18; TEMP 35.6; O2SAT 96
[2023-10-12 19:23] VITALS: BP 129/91; PULSE 88; RESP 18; TEMP 35.6; O2SAT 96; BMI 35.0
--- NOTE | 2023-10-12 19:29 | EKG12_ITS ---
Test Reason : CP Blood Pressure : / mmHG Vent. Rate : 082 BPM Atrial Rate : 082 BPM P-R Int : 134 ms QRS Dur : 094 ms QT Int : 398 ms P-R-T Axes : 021 -25 010 degrees QTc Int : 464 ms Normal sinus rhythm Minimal voltage criteria for LVH, may be normal variant ( [place] product ) Nonspecific ST abnormality Abnormal ECG Confirmed by Mino Medina ([id number]), assignment desk editor JAKE BOOKER ([id number]) on 10/15/2023 6:36:52 AM Referred By: PORSHA Confirmed By:Mino Medina
--- NOTE | 2023-10-12 19:30 | ED.VIS.CHEST ---
HPI History of Present Illness Chief Complaint: Chest Pain Detail of Chief Complaint: Chest pain Informant: patient Narrative Narrative: Patient presents with chest discomfort that started around 2 PM today. She was at work when she noticed what she thought was indigestion but she took some Tums and it did not relieve the symptoms so she called her daughter who is a nurse at [employer] [facility] who advised her to come in and get evaluated. Patient has history of diabetes and hypertension. She states both her parents of MIs in their 80s. She does not smoke cigarettes. She denies recent travel or surgery. She herself does not have any heart history. Patient states that the pain does not radiate anywhere into the arm or neck or jaw. She had no nausea with it. She denies shortness of breath. She denies exertional symptoms leading up to today. [facility] Medical History (Updated 10/12/23 @ 22:[address] Debra Jose DO) Depression HTN (hypertension) Open back wound Type 2 diabetes mellitus Home Medications metformin 500 mg tablet 500 mg PO DAILY 12/21/22 [History Last Taken Unknown] hydrochlorothiazide 25 mg tablet 25 mg PO DAILY 05/21/23 [History Last Taken Unknown] lisinopril 10 mg tablet 10 mg PO DAILY 05/21/23 [History Last Taken Unknown] meloxicam 15 mg tablet 15 mg PO DAILY PRN PRN pain 05/21/23 [History Last Taken Unknown] potassium chloride 20 mEq tablet,extended release 20 meq PO DAILY 05/21/23 [History Last Taken Unknown] bupropion HCl 300 mg 24 hr tablet, extended release 300 mg PO DAILY 10/12/23 [History Last Taken Unknown] folic acid 1 mg tablet 2 mg PO DAILY 10/12/23 [History Last Taken Unknown] gabapentin 100 mg capsule 100 mg PO TID PRN PRN pain 10/12/23 [History Last Taken Unknown] methotrexate sodium 2.5 mg tablet 12.5 mg PO SA 10/12/23 [History Last Taken Unknown] Allergy/AdvReac Type Severity Reaction Status Date / Time No Known Allergies Allergy Verified 10/12/23 19:22 Family History Other CVA (cerebral vascular accident) Diabetes Hypertension Surgical History (Updated 05/21/23 @ 14:45 by Brenda Keene) S/P wisdom tooth extraction Social History (Updated 05/21/23 @ 14:46 by Brenda Keene) Smoking Status: Never smoker alcohol intake: never ROS ROS ED Review of Systems ROS Unobtainable: other Constitutional Constitutional ED: Reports lethargy; Denies chills, fever(s), sweats or weight loss Eyes Eyes: Denies blurry vision, change in vision or diplopia ENT ENT ED: Denies rhinorrhea or sore throat Cardiovascular Cardiovascular: Reports chest pain; Denies orthopnea or racing heartbeat Respiratory/Chest Respiratory/Chest: Denies cough, dyspnea, dyspnea on exertion, orthopnea or sputum Gastrointestinal Gastrointestinal: Denies abdominal pain, diarrhea, nausea or vomiting Genitourinary Genitourinary ED: Denies dysuria, hematuria or urinary frequency Musculoskeletal Musculoskeletal: Denies arthralgias, back pain, myalgias or neck pain Integumentary Denies abscess, Abrasions or rash Neurologic Neurologic: Denies headache(s) or weakness Psychiatric Psychiatric: Denies anxiety, depression or suicidal thoughts Endocrine Endocrinology: Denies polydipsia, polyphagia or polyuria Hematologic/Lymphatic Hematologic/Lymphatic: Denies easy bleeding, easy bruising or lymphadenopathy Allergic/Immunologic Allergic/Immunologic ED: Denies mouth swelling, tongue swelling or urticaria EXAM Physical Exam Const Vital Signs: 10/12/23 19:23 10/12/23 19:18 10/12/23 19:40 Temperature 96.0 F L 96.0 F L Temperature Source Temporal Temporal Pulse Rate 88 88 Respiratory Rate 18 18 Respiratory Effort Normal Non-Labored Blood Pressure 129/91 H 129/91 H Blood Pressure Mean 103 103 Pulse Ox 96 96 Oxygen Delivery Method Room Air Room Air 10/12/23 19:45 10/12/23 20:29 10/12/23 21:28 Temperature 97.9 F Temperature Source Oral Pulse Rate 80 74 77 Respiratory Rate 22 H 22 H 20 H Respiratory Effort Blood Pressure 120/66 132/65 H 136/67 H Blood Pressure Mean 84 87 90 Pulse Ox 95 96 96 Oxygen Delivery Method Room Air Room Air Room Air Positive well nourished and well developed General Appearance ED: well developed and NAD HEENT Reports TM's clear and moist mucous membranes normocephalic and atraumatic; Negative for trauma or tenderness Tympanic Membrane ED: Yes TM's clear Eyes PERRL and EOMs intact bilaterally General Eye ED: Negative for pale conjunctiva or scleral icterus Neck no lymphadenopathy, supple and no JVD General: Negative for tenderness Chest Wall inspection of chest normal and palpation of chest normal Chest: Negative for tenderness Resp normal respiratory effort and clear to auscultation bilaterally Effort and Inspection: Negative for respiratory distress or pain with movement Auscultation: Negative for rhonchi, wheezes or diminished lung sounds Cardio regular rate, regular rhythm, S1 normal heart sound, S2 normal heart sound and no murmurs Peripheral Pulses: pulses 2+ throughout GI normal to inspection, nondistended, normoactive bowel sounds, soft to palpation, non-tender, non-distended and no masses Back/Spine no CVA tenderness and no thoracic nor lumbar tenderness Extremity normal to inspection General Extremety ED: Negative for edema General Extremity: Negative for edema Neuro oriented x3, CN's II-XII intact bilaterally, no sensory deficits noted and gait normal Sensorium / Orientation: awake, alert, oriented to person, oriented to place and oriented to time Motor Exam: strength 5/5 throughout and strength abnormal Psych mental status grossly normal Skin no rashes or lesions noted and no wounds Heart Score History: Slightly/Non-Suspicious ECG: Normal Age: >45 - <65 years Risk Factors: 1 or 2 Risk Factors Troponin: </= Normal Limit Score: 2 MDM MDM MDM Narrative Medical decision making narrative: Patient presents with a vague chest discomfort across her chest in the epigastric region that she describes as an ache. In the differential would be GERD versus esophageal spasm versus acute coronary syndrome. IV line established. EKG obtained arrival shows sinus rhythm with ventricular rate of 82 bpm with no acute ST segment changes. CBC with differential showed a normal white count of 7.5 with hemoglobin 14.9 and platelet count 240. Chemistries unremarkable. Initial troponin was normal at 4. This is with ongoing continuous pain for about 7 hours. Patient also had a delta troponin that also was normal at 4. This point discussed results with patient clinically I do not suspect an acute coronary syndrome. Etiology of symptoms unclear. Recommended she follow-up with her primary care physician within next 3 to 5 days. She is advised to return if exertional symptoms or worsening chest pain or condition should worsen anyway. Lab Data Attestation: I reviewed the patient's lab results. Labs: Laboratory Results - last 24 hr 10/12/23 10/12/23 19:30 21:25 WBC 7.5 RBC 5.18 Hgb 14.9 Hct 44.2 MCV 85.3 MCH 28.8 MCHC 33.7 RDW Std Deviation 39.8 RDW Coeff of Carlin 13.2 Plt Count 240 MPV 9.0 Immature Gran % (Auto) 0.300 Neut % (Auto) 63.9 Lymph % (Auto) 25.5 [place] % (Auto) 6.9 Eos % (Auto) 2.5 Baso % (Auto) 0.9 Absolute Neuts (auto) 4.8 Absolute Lymphs (auto) 1.91 Nucleated RBC % 0 D-Dimer Quant (PE/DVT) 0.32 Sodium 139 Potassium 3.7 Chloride 107 Carbon Dioxide 28.0 Anion Gap 4 L BUN 25 H Creatinine 0.70 Estim Creat Clear Calc 104.90 Est GFR (MDRD) Af Amer 110 Est GFR (MDRD) Non-Af 91 BUN/Creatinine Ratio 35.6 H Glucose 108 H Calcium 9.4 Troponin I High Sens 4 4 Radiography Diagnostic Testing: Clinical Impression(s) from Imaging Studies Chest X-Ray 10/12/23 19:34 IMPRESSION: Normal x-ray examination of the chest. Electronically Signed: Alex Sherman MD at 20:08 EDT Reading Location ID and State: [facility] / [place] Tel , Service support , 1 view chest x-ray obtained interpreted by myself as no evidence of infiltrate or pneumothorax or acute disease process. Radiology in agreement. EKG Initial EKG: Attestation: I personally reviewed and interpreted this EKG as follows: Comments: Sinus rhythm with rate of 82 bpm with no acute ST segment changes noted Discharge Plan Triage Chief Complaint: Chest Pain ED Provider: Debra Jose Dx/Rx/DC Orders Clinical Impression: Chest pain Instructions: ED Chest Pain, Uncertain Cause Prescriptions: No Action meloxicam 15 mg tablet 15 mg PO DAILY PRN PRN (Reason: pain) Patient Comments: take 1 tablet by mouth once daily if needed potassium chloride 20 mEq tablet extended release 20 meq PO DAILY Patient Comments: take 1 tablet by mouth once daily hydrochlorothiazide 25 mg tablet 25 mg PO DAILY Patient Comments: take 1 tablet by mouth once daily lisinopril 10 mg tablet 10 mg PO DAILY Patient Comments: take 1 tablet by mouth daily metformin 500 mg Tablet 500 mg PO DAILY bupropion HCl 300 mg tablet extended release 24 hr 300 mg PO DAILY folic acid 1 mg tablet 2 mg PO DAILY gabapentin 100 mg capsule 100 mg PO TID PRN PRN (Reason: pain) methotrexate sodium 2.5 mg tablet 12.5 mg PO SA Primary Care Provider: Samara Bills Referrals: Samara Bills, [Primary Care Provider] - 3-5 Days Disposition Disposition: Home, Self Care
--- NOTE | 2023-10-12 19:34 | RAD_ITS ---
STUDY: X-RAY CHEST REASON FOR EXAM: Female, 57 years old. chest pain TECHNIQUE: Single frontal view of the chest. COMPARISON: CT chest November 15, 2022. Chest x-ray November 08, 2018 FINDINGS: The lungs are clear and expanded. There is no demonstrated pleural abnormality. Normal size heart. Normal mediastinum and anastasia. Normal visualized pulmonary arteries. Normal visualized aortic arch and descending thoracic aorta. Normal visualized thoracic spine. Normal visualized ribs, clavicles, and shoulders. There is no demonstrated abnormality of the visualized soft tissue structures of the upper abdomen. RAD/Chest 1 View (Portable) IMPRESSION: Normal x-ray examination of the chest. Electronically Signed: Alex Sherman MD at 20:08 EDT ,
[2023-10-12] MEDS: Aspirin 81 MG TAB.CHEW 324 MG PO (19:40)
[2023-10-12 19:41] LABS: Absolute Lymphocyte Count 1.91 X10^3/uL (0.83-4.51); Absolute Neutrophil Count 4.8 X10^3/uL (2.0-7.7); Basophil# 0.07 X10^3/uL; Basophil% 0.9 % (0-1); Eosinophil# 0.19 X10^3/uL; Eosinophils% 2.5 % (0-5); Hematocrit 44.2 % (37-47); Hemoglobin 14.9 g/dL (12.0-15.0); Lymphocyte # 1.91 X10^3/ul (0.83-4.51); Lymphocyte % 25.5 % (19-41); Mean Corp Hgb Conc 33.7 g/dL (32-36); Mean Corpuscular Hgb 28.8 pg (27.0-32.0); Mean Corpuscular Volume 85.3 fL (81-99); Monocyte# 0.52 X10^3/uL; Monocyte% 6.9 % (0-10); NRBC Flagged by Analyzer 0 % (0-5); Neutrophil # 4.79 X10^3/uL (2.7-7.7); Neutrophil % 63.9 % (47-70); Platelet Count 240 K/mm3 (150-450); RBC Distribution Width CV 13.2 % (11.6-14.6); RBC Distribution Width SD 39.8 fl (35.1-43.9); Red Blood Count 5.18 M/mm3 (4.2-5.4); White Blood Count 7.5 K/mm3 (4.4-11.0)
[2023-10-12 19:45] VITALS: BP 120/66; PULSE 80; RESP 22; O2SAT 95
[2023-10-12 19:55] LABS: D-Dimer Quantitative (DVT/PE) 0.32 FEU/ug/m (0.27-0.49)
[2023-10-12] MEDS: 0.9% Normal Saline (1000mL) 1,000 ML 150 ML IV (20:00)
[2023-10-12 20:06] LABS: Anion Gap 4 (5-15); BUN 25 mg/dL (7-18); BUN/Creat Ratio 35.6 RATIO (10-20); Calcium,Total 9.4 mg/dL (8.5-10.1); Chloride 107 mmol/L (98-107); EST Glomerular Filtration Rate 91 mL/min (>60); Est Glom Filt Rate - Afr Amer 110 mL/min (>60); Glucose 108 mg/dL (74-106); Potassium 3.7 mmol/L (3.5-5.1); Sodium Level 139 mmol/L (136-145); Troponin-I HS (w/2H Reflex) 4 pg/mL (3.0-54.0)
--- NOTE | 2023-10-12 20:23 | ED.RN ---
NITRO NOT GIVEN. PT DENIES PAIN.
[2023-10-12 20:29] VITALS: BP 132/65; PULSE 74; RESP 22; O2SAT 96
[2023-10-12 21:28] VITALS: BP 136/67; PULSE 77; RESP 20; TEMP 36.6; O2SAT 96
[2023-10-12 21:38] LABS: Reflex Troponin-HS? (from REC) Y
[2023-10-12 22:06] LABS: Troponin-I HS 4 pg/mL (3.0-54.0)
[2023-10-12 22:43] VITALS: BP 132/80; PULSE 86; RESP 22; TEMP 36.6; O2SAT 96
== END 2023-10-12 22:44 | disposition home or self-care (01) ==
PROVIDERS: Emergency Provider Emergency Medicine; PCP Family Medicine; Visit Provider Emergency Medicine
DX: R07.9 Chest pain, unspecified (principal); E11.9 Type 2 diabetes mellitus without complications; I10 Essential (primary) hypertension; F32.A Depression, unspecified; Z79.899 Other long term (current) drug therapy; Z79.84 Long term (current) use of oral hypoglycemic drugs
CPT/HCPCS: 71045; 80048; 84484; 85025; 85379; 93005; 96360; 96361; 99284; J7030; A4216

== ENCOUNTER → 2023-10-19 | Outpatient (CLI) | payer OTHER, SELFPAY ==
[2023-10-19 15:28] LABS: Absolute Lymphocyte Count 1.27 X10^3/uL (0.83-4.51); Absolute Neutrophil Count 4.9 X10^3/uL (2.0-7.7); Basophil# 0.03 X10^3/uL; Basophil% 0.4 % (0-1); Eosinophil# 0.21 X10^3/uL; Eosinophils% 3.1 % (0-5); Hematocrit 43.8 % (37-47); Hemoglobin 14.8 g/dL (12.0-15.0); Lymphocyte # 1.27 X10^3/ul (0.83-4.51); Lymphocyte % 18.8 % (19-41); Mean Corp Hgb Conc 33.8 g/dL (32-36); Mean Corpuscular Hgb 29.2 pg (27.0-32.0); Mean Corpuscular Volume 86.6 fL (81-99); Mean Platelet Vol. 9.4 fl (6.2-12.0); Monocyte# 0.35 X10^3/uL; Monocyte% 5.2 % (0-10); NRBC Flagged by Analyzer 0 % (0-5); Neutrophil # 4.87 X10^3/uL (2.7-7.7); Neutrophil % 72.1 % (47-70); Platelet Count 242 K/mm3 (150-450); RBC Distribution Width CV 13.4 % (11.6-14.6); Red Blood Count 5.06 M/mm3 (4.2-5.4); White Blood Count 6.8 K/mm3 (4.4-11.0)
[2023-10-19 15:50] LABS: ALB/GLOB Ratio 1.1 RATIO (0.9-2.4); AST(SGOT) 22 U/L (15-37); Alanine Aminotransfer ALT/SGPT 37 U/L (13-56); Alkaline Phosphatase 89 U/L (45-117); Anion Gap 5 (5-15); BUN 21 mg/dL (7-18); BUN/Creat Ratio 31.5 RATIO (10-20); Calcium,Total 8.8 mg/dL (8.5-10.1); Chloride 107 mmol/L (98-107); Creatinine, Serum 0.67 mg/dL (0.55-1.02); EST Glomerular Filtration Rate 97 mL/min (>60); Est Glom Filt Rate - Afr Amer 117 mL/min (>60); Globulin 3.5 g/dL (2.2-4.2); Glucose 164 mg/dL (74-106); Potassium 3.7 mmol/L (3.5-5.1); Protein, Total 7.5 g/dL (6.4-8.2); Sodium Level 139 mmol/L (136-145)
== END | disposition home or self-care (01) ==
LOC: MTLAB 13:48
PROVIDERS: PCP Family Medicine; Referring Provider Internal Medicine Rheumatology; Visit Provider Internal Medicine Rheumatology
DX: M06.4 Inflammatory polyarthropathy (principal); M79.7 Fibromyalgia; Z79.899 Other long term (current) drug therapy
CPT/HCPCS: 36415; 80053; 85025

== ENCOUNTER → 2023-10-25 | Outpatient (CLI) | payer OTHER, SELFPAY ==
--- NOTE | 2023-10-25 09:36 | STEWCON_ITS ---
Reason For Study: Chest Pain Stress Results Protocol: Sarthak Protocol Maximum Predicted HR: 163 bpm Target HR: 139 bpm % Maximum Predicted HR: 85 % DurationHeart Rate Stage (mm:ss) (bpm) BP Comment Baseline 82 128/72No Chest Pain; 4.5 ML Definity Given Sarthak Protocol Stage I 3:00 125 150/70No Chest Pain; Mild Dyspnea Sarthak Protocol Stage II 3:00 139 164/72No Chest Pain; Moderate Dyspnea Recovery 96 122/84No Chest Pain; No Dyspnea Stress Duration: 6:00 mm:ss Maximum Stress HR: 139 bpm METS: 7 Baseline Echocardiogram Findings The estimated ejection fraction is 55 %. Post-rest EF is 60%. Stress Echo Wall motion Data Resting WM Intermediate WM Stress WM Resting Wall Motion Wall Motion Stress No regional wall motion The basal lateral wall is not abnormalities noted. well visualized but appears to be hypokinetic during peak exercise on the four-chamber view. EKG Data The baseline ECG displays normal sinus rhythm. No ischemic changes. Symptoms with Stress The patient experinced No chest pain . Doppler Measurements & Calculations TR max dionte: 201.3 cm/sec TR max P.2 mmHg ECHO/Stress Test Echo W/Contrast Interpretation Summary The estimated ejection fraction is 55 %. Stress test is negative for exercise-induced chest pain or EKG changes of ische michell. Functional capacity is normal for age. Based on stress echo images, there is possible ischemia involving the basal lat eral wall. Ordering Physician: Samara Bills Referring Physician: Samara Bills Performed By: Mick Lyles RCS
== END | disposition home or self-care (01) ==
LOC: CVS 09:34
PROVIDERS: PCP Family Medicine; Referring Provider Family Medicine; Visit Provider Family Medicine
DX: R07.9 Chest pain, unspecified (principal)
CPT/HCPCS: 93017; 93350; Q9957; A4216; C8928

== ENCOUNTER → 2023-12-18 | Outpatient (CLI) | payer OTHER, SELFPAY ==
[2023-12-18 15:27] LABS: Absolute Lymphocyte Count 1.37 X10^3/uL (0.83-4.51); Absolute Neutrophil Count 4.6 X10^3/uL (2.0-7.7); Basophil# 0.03 X10^3/uL; Basophil% 0.5 % (0-1); Eosinophil# 0.16 X10^3/uL; Eosinophils% 2.4 % (0-5); Hematocrit 44.5 % (37-47); Hemoglobin 14.8 g/dL (12.0-15.0); Lymphocyte # 1.37 X10^3/ul (0.83-4.51); Lymphocyte % 20.7 % (19-41); Mean Corp Hgb Conc 33.3 g/dL (32-36); Mean Corpuscular Hgb 29.7 pg (27.0-32.0); Mean Corpuscular Volume 89.2 fL (81-99); Monocyte# 0.46 X10^3/uL; Monocyte% 6.9 % (0-10); NRBC Flagged by Analyzer 0 % (0-5); Neutrophil # 4.59 X10^3/uL (2.7-7.7); Neutrophil % 69.2 % (47-70); Platelet Count 235 K/mm3 (150-450); RBC Distribution Width CV 13.9 % (11.6-14.6); RBC Distribution Width SD 44.8 fl (35.1-43.9); Red Blood Count 4.99 M/mm3 (4.2-5.4); White Blood Count 6.6 K/mm3 (4.4-11.0)
[2023-12-18 16:09] LABS: ALB/GLOB Ratio 1.1 RATIO (0.9-2.4); AST(SGOT) 21 U/L (15-37); Alanine Aminotransfer ALT/SGPT 28 U/L (13-56); Alkaline Phosphatase 95 U/L (45-117); Anion Gap 6 (5-15); BUN 13 mg/dL (7-18); BUN/Creat Ratio 18.3 RATIO (10-20); Calcium,Total 9.1 mg/dL (8.5-10.1); Chloride 103 mmol/L (98-107); Creatinine, Serum 0.71 mg/dL (0.55-1.02); EST Glomerular Filtration Rate 90 mL/min (>60); Est Glom Filt Rate - Afr Amer 109 mL/min (>60); Globulin 3.6 g/dL (2.2-4.2); Glucose 82 mg/dL (74-106); Potassium 3.7 mmol/L (3.5-5.1); Protein, Total 7.6 g/dL (6.4-8.2); Sodium Level 136 mmol/L (136-145)
== END | disposition home or self-care (01) ==
LOC: MTLAB 11:45
PROVIDERS: PCP Family Medicine; Referring Provider Internal Medicine Rheumatology; Visit Provider Internal Medicine Rheumatology
DX: M06.4 Inflammatory polyarthropathy (principal); M79.7 Fibromyalgia; Z79.899 Other long term (current) drug therapy
CPT/HCPCS: 36415; 80053; 85025

== ENCOUNTER → 2024-02-05 | Outpatient (CLI) | payer OTHER, SELFPAY ==
[2024-02-05 15:30] LABS: Absolute Lymphocyte Count 1.02 X10^3/uL (0.83-4.51); Absolute Neutrophil Count 4.4 X10^3/uL (2.0-7.7); Basophil# 0.04 X10^3/uL; Basophil% 0.7 % (0-1); Eosinophil# 0.13 X10^3/uL; Eosinophils% 2.2 % (0-5); Hematocrit 42.7 % (37-47); Hemoglobin 14.2 g/dL (12.0-15.0); Lymphocyte # 1.02 X10^3/ul (0.83-4.51); Lymphocyte % 17.4 % (19-41); Mean Corp Hgb Conc 33.3 g/dL (32-36); Mean Corpuscular Hgb 30.1 pg (27.0-32.0); Mean Corpuscular Volume 90.7 fL (81-99); Mean Platelet Vol. 9.2 fl (6.2-12.0); Monocyte# 0.23 X10^3/uL; Monocyte% 3.9 % (0-10); NRBC Flagged by Analyzer 0 % (0-5); Neutrophil # 4.41 X10^3/uL (2.7-7.7); Neutrophil % 75.5 % (47-70); Platelet Count 240 K/mm3 (150-450); RBC Distribution Width CV 13.9 % (11.6-14.6); RBC Distribution Width SD 45.8 fl (35.1-43.9); Red Blood Count 4.71 M/mm3 (4.2-5.4); White Blood Count 5.9 K/mm3 (4.4-11.0)
[2024-02-05 16:10] LABS: ALB/GLOB Ratio 1.1 RATIO (0.9-2.4); AST(SGOT) 24 U/L (15-37); Alanine Aminotransfer ALT/SGPT 31 U/L (13-56); Albumin, Serum 3.9 g/dL (3.2-5.0); Alkaline Phosphatase 86 U/L (45-117); Anion Gap 7 (5-15); BUN 15 mg/dL (7-18); BUN/Creat Ratio 16.5 RATIO (10-20); Chloride 107 mmol/L (98-107); Creatinine, Serum 0.91 mg/dL (0.55-1.02); EST Glomerular Filtration Rate 68 mL/min (>60); Est Glom Filt Rate - Afr Amer 82 mL/min (>60); Globulin 3.4 g/dL (2.2-4.2); Glucose 177 mg/dL (74-106); Potassium 3.9 mmol/L (3.5-5.1); Protein, Total 7.3 g/dL (6.4-8.2); Sodium Level 141 mmol/L (136-145)
== END | disposition home or self-care (01) ==
LOC: MTLAB 10:48
PROVIDERS: PCP Family Medicine; Referring Provider Internal Medicine Rheumatology; Visit Provider Internal Medicine Rheumatology
DX: M06.4 Inflammatory polyarthropathy (principal); Z79.899 Other long term (current) drug therapy; M79.7 Fibromyalgia
CPT/HCPCS: 36415; 80053; 85025

== ENCOUNTER → 2024-03-13 | Outpatient (CLI) | payer OTHER, SELFPAY ==
[2024-03-13 15:24] LABS: Absolute Lymphocyte Count 1.56 X10^3/uL (0.83-4.51); Absolute Neutrophil Count 5.7 X10^3/uL (2.0-7.7); Basophil# 0.07 X10^3/uL; Basophil% 0.9 % (0-1); Eosinophil# 0.15 X10^3/uL; Eosinophils% 1.8 % (0-5); Hematocrit 43.6 % (37-47); Hemoglobin 14.5 g/dL (12.0-15.0); Lymphocyte # 1.56 X10^3/ul (0.83-4.51); Lymphocyte % 19.2 % (19-41); Mean Corp Hgb Conc 33.3 g/dL (32-36); Mean Corpuscular Hgb 30.6 pg (27.0-32.0); Monocyte# 0.63 X10^3/uL; Monocyte% 7.8 % (0-10); NRBC Flagged by Analyzer 0 % (0-5); Neutrophil # 5.67 X10^3/uL (2.7-7.7); Neutrophil % 69.9 % (47-70); Platelet Count 267 K/mm3 (150-450); RBC Distribution Width CV 13.9 % (11.6-14.6); RBC Distribution Width SD 46.8 fl (35.1-43.9); Red Blood Count 4.74 M/mm3 (4.2-5.4); White Blood Count 8.1 K/mm3 (4.4-11.0)
[2024-03-13 15:40] LABS: Prothrombin Time (Protime)PT. 13.5 SECONDS (11.7-14.9)
[2024-03-13 15:51] LABS: Anion Gap 10 (5-15); BUN 19 mg/dL (7-18); BUN/Creat Ratio 24.8 RATIO (10-20); Calcium,Total 9.1 mg/dL (8.5-10.1); Chloride 106 mmol/L (98-107); Creatinine, Serum 0.76 mg/dL (0.55-1.02); EST Glomerular Filtration Rate 82 mL/min (>60); Est Glom Filt Rate - Afr Amer 100 mL/min (>60); Glucose 90 mg/dL (74-106); Potassium 3.8 mmol/L (3.5-5.1); Sodium Level 139 mmol/L (136-145)
== END | disposition home or self-care (01) ==
LOC: LAB 14:19
PROVIDERS: PCP Family Medicine; Referring Provider Internal Medicine Cardiovascular Disease; Visit Provider Internal Medicine Cardiovascular Disease
DX: R94.39 Abnormal result of other cardiovascular function study (principal); E11.9 Type 2 diabetes mellitus without complications; R07.9 Chest pain, unspecified; I10 Essential (primary) hypertension
CPT/HCPCS: 36415; 80048; 85025; 85610

== ENCOUNTER → 2024-03-19 | Outpatient (CLI) | payer OTHER, SELFPAY ==
--- NOTE | 2024-03-19 | EMB_PTH ---
PATIENT: NO HORNER LOC: [facility]#:[id number] AGE/SX: 58/F ROOM: RE03/19/[address]: SUMIT Mares : 1965 BED: DIS: 03/19/2024 SPEC #: [id number] RECD: 03/19/24 14:01 STATUS: MARCUS KASIA #: [id number] BRITT: 03/19/24 00:[address]: Allison Reynolds NP DEPT: SURGICAL PATHOLOGY RECD BY: Nancy Felipe ENTERED: 03/20/24 10:19 SP TYPE: ENDOM BX/C BRYAN DR: Amparo Bills, [facility], DO Tissues: Endometrium, NOS Procedures: Surgery Specimen Level IV HEADER OPERATION: Endometrial biopsy PRE-OP DIAGNOSIS: Post menopausal bleeding TISSUE SUBMITTED: Endometrial lining MICROSCOPIC DIAGNOSIS Endometrium, biopsy: Polypoid fragment of benign endocervical polyp. Strips of benign glandular mucosa. Mucoid material and blood clots. AM. 03/21/2024 MICROSCOPIC DESCRIPTION Slides are reviewed. GROSS DESCRIPTION Received is one container labeled with the patient's name and not further designated. The specimen consists of multiple irregular fragments of hemorrhagic mucoid tissue that in aggregate measure 3.0 x 2.5 x 0.3 cm. Also present in the container is a piece of edwards-pink polyp measuring 2.0 x 1.0 x 0.4cm. The specimen is totally submitted in two cassettes. 03/20/2024 TC:5 CPT:90790
[2024-03-26 09:10] LABS: HPV APTIMA, High Risk Negative (Negative)
== END | disposition home or self-care (01) ==
PROVIDERS: PCP Family Medicine; Referring Provider Nurse Practitioner Women's Health; Visit Provider Nurse Practitioner Women's Health
DX: Z12.4 Encounter for screening for malignant neoplasm of cervix (principal); N95.0 Postmenopausal bleeding
CPT/HCPCS: 87624; 88175; 88305; G0145

== ENCOUNTER 2024-03-27 10:16 | Day surgery (SDC) | payer OTHER, SELFPAY ==
[2024-03-26 11:35] VITALS: BMI 34.5
--- NOTE | 2024-03-27 12:55 | CL.D_ITS ---
Patient Name: NO HORNER Study Date: 03/27/2024 Performing: Earnest South MD Ht: 66.14 inches 168 cm : 1965 Wt: 214.99 lbs 97.52 kg Age: 58 Gender: female BSA: 2.07 PROCEDURE(S) PERFORMED DC01-(36516)LHC/COR/LV CLINICAL PROFILE AND INDICATIONS Indications: Suspected CAD Heart Failure: None Stress/Imaging Stress Echocardiogram: Yes Result: Positive Low RiskStress Echocardiogram: Positive Low Risk CAD Presentations: Symptom unlikely to be ischemic. CONCLUSIONS Normal coronary arteries Normal LV size, wall motion,and systolic function RECOMMENDATIONS Medical therapy DESCRIPTION OF PROCEDURE The patient arrived to the procedure lab. The risks and benefits of the procedure as well as a full description of our services here and current unavailability of surgical backup were fully explained to the patient and/or their significant other prior to the catheterization. The Timeout was completed, verifying the correct patient and procedure. The patient's procedural site was prepped and draped in the usual fashion. Local anesthetic was given subcutaneously to right radial region with Lidocaine 2%. Using a modified Seldinger technique, arterial access was obtained via the right radial artery, a 6Fr sheath was inserted. Left Coronary Artery selective angiography was performed in multiple views using a 5 Fr. JL3.5 catheter. Right Coronary Artery selective angiography was then performed in multiple views using a 5 Fr. JR 5 catheter. Left Ventriculography was performed in HUA projection using a 5 Fr. Pigtail catheter. LV to AO pullback pressures were then recorded.The arterial sheath was pulled and a TR Band was applied for hemostasis w/ 12ml air CORONARY ANGIOGRAPHY DOMINANCE: Right Dominant LEFT HEART ASSESSMENT Left Ventricular Ejection Fraction: by LV Gram 60 % Normal LV wall motion Normal Left Ventricular systolic function Normal Left Ventricular systolic function LEFT MAIN: Angiographically normal LEFT ANTERIOR DESCENDING ARTERY: Angiographically normal CIRCUMFLEX ARTERY: Angiographically normal RIGHT CORONARY ARTERY: Angiographically normal COMPLICATIONS No Complications PROCEDURE MEDICATIONS Versed 1 mg IV Fentanyl 50 mcg IV Versed 1 mg IV Oxygen: 2 L/min via nasal cannula SUMMARY OF HEMODYNAMIC DATA Time AIR REST ECG 10:38:41 AO 130/63 (91) SA 12:12:23 LV 104/-1, 8 12:27:26 LV 93/-4, 3 12:27:27 LV 112/0, 7 12:28:07 LV 110/0, 4 12:28:13 LVp 109/0, 4 12:28:17 AOp 116/49 (79) 12:28:22 Signed By Earnest South MD On 03/27/2024 12:54:44 Earnest South MD
== END 2024-03-27 14:15 | disposition home or self-care (01) ==
PROVIDERS: PCP Family Medicine; Referring Provider Internal Medicine Cardiovascular Disease; Visit Provider Internal Medicine Cardiovascular Disease
DX: I25.10 Atherosclerotic heart disease of native coronary artery without angina pectoris (principal); E11.9 Type 2 diabetes mellitus without complications; I10 Essential (primary) hypertension; F32.A Depression, unspecified; Z79.84 Long term (current) use of oral hypoglycemic drugs; Z79.899 Other long term (current) drug therapy
CPT/HCPCS: 93458; 99152; 99153; J7040; Q9967; C1769; C1894

== ENCOUNTER → 2024-03-31 | Outpatient (CLI) | payer OTHER, SELFPAY ==
--- NOTE | 2024-03-31 13:40 | BI_ITS ---
MAMMOGRAPHY - BILATERAL SCREENING REASON FOR EXAM: Female, 58 years old. Routine annual screening examination. PERTINENT HISTORY: Grandmother with breast cancer. TECHNIQUE: Digital bilateral breast ranjit (3D mammographic acquisition) in the CC and MLO projections. 2-D mediolateral oblique (MLO) and craniocaudad (CC) views of both breasts were obtained. CAD: Full Field Digital Mammography with Computer Added Detection was performed. COMPARISON: Comparison is made with prior outside examination dated September 03, 2017. FINDINGS: Breast Composition: The breasts are heterogeneously dense, which may obscure small masses. There are no dominant masses or suspicious calcifications. No other significant abnormalities are identified. There has been no significant change since the prior study. BI/SCRN MAMM (CAD)W/RANJIT BILAT IMPRESSION: Stable bilateral screening mammogram. Yearly follow-up mammogram recommended. (A) ASSESSMENT CATEGORY: BIRADS Category 1: Negative. A letter regarding these results will be sent to the patient by the facility within 30 days. Approximately 10% of breast cancers are not detected by mammography. A normal mammogram should not delay biopsy of a clinically suspicious abnormality. [id number] Electronically Signed: Yannick Gerber MD at 15:34 EDT ,
--- NOTE | 2024-03-31 13:40 | US_ITS ---
STUDY: ULTRASOUND OF THE FEMALE PELVIS - COMPLETE REASON FOR EXAM: Female, 58 years old. Bleeding LMP: Patient is postmenopausal. TECHNIQUE: Transabdominal and Transvaginal TECHNICAL QUALITY: Adequate. COMPARISON: None. FINDINGS: The uterus is anteverted and is in a midline position. The uterus measures 9.2 cm x 5.2 cm x 4.7 cm. There is a Nabothian cyst of the cervix. The endometrium measures 3.9 mm in thickness, and is hyperechoic. There is no demonstrated endometrial mass. Heterogeneous appearance of the myometrium. Findings suggestive of 2, small fibroids. The larger measures 2.1 cm x 2.1 cm x 1.5 cm. 2 hypoechoic structures are seen within the lateral aspect of the vagina. The larger measures 2 cm x 2.2 cm x 1.1 cm. Increased vascularity is seen. Clinical correlation recommended. I.U.D. - The patient does not have an I.U.D. The right ovary is non-visualized. The left ovary is non-visualized. There is no fluid in the cul-de-sac. The pre void volume of the bladder was 714 ml. US/Pelvic w/ Transvaginal IMPRESSION: Findings suggestive of a small uterine fibroids. Findings suggestive of 2 hypoechoic structures within the lateral aspect of the vagina. Increased vascularity is seen. Clinical correlation is recommended. Electronically Signed: Yannick Gerber MD at 12:49 EDT ,
== END | disposition home or self-care (01) ==
LOC: OPBI 13:40
PROVIDERS: PCP Family Medicine; Referring Provider Nurse Practitioner Women's Health; Visit Provider Nurse Practitioner Women's Health
DX: Z12.31 Encounter for screening mammogram for malignant neoplasm of breast (principal); N95.0 Postmenopausal bleeding
CPT/HCPCS: 76830; 76856; 77063; 77067

== ENCOUNTER → 2024-04-08 | Outpatient (CLI) | payer OTHER, SELFPAY ==
[2024-04-08 15:28] LABS: Absolute Lymphocyte Count 0.94 X10^3/uL (0.83-4.51); Absolute Neutrophil Count 4.6 X10^3/uL (2.0-7.7); Basophil# 0.04 X10^3/uL; Basophil% 0.7 % (0-1); Eosinophil# 0.15 X10^3/uL; Eosinophils% 2.5 % (0-5); Hematocrit 39.3 % (37-47); Hemoglobin 13.1 g/dL (12.0-15.0); Lymphocyte # 0.94 X10^3/ul (0.83-4.51); Lymphocyte % 15.7 % (19-41); Mean Corp Hgb Conc 33.3 g/dL (32-36); Mean Corpuscular Hgb 30.6 pg (27.0-32.0); Mean Corpuscular Volume 91.8 fL (81-99); Mean Platelet Vol. 8.9 fl (6.2-12.0); Monocyte# 0.26 X10^3/uL; Monocyte% 4.3 % (0-10); NRBC Flagged by Analyzer 0 % (0-5); Neutrophil # 4.58 X10^3/uL (2.7-7.7); Neutrophil % 76.6 % (47-70); Platelet Count 230 K/mm3 (150-450); RBC Distribution Width CV 14.2 % (11.6-14.6); RBC Distribution Width SD 46.7 fl (35.1-43.9); Red Blood Count 4.28 M/mm3 (4.2-5.4)
[2024-04-08 15:58] LABS: ALB/GLOB Ratio 1.3 RATIO (0.9-2.4); AST(SGOT) 37 U/L (15-37); Alanine Aminotransfer ALT/SGPT 38 U/L (13-56); Albumin, Serum 3.8 g/dL (3.2-5.0); Alkaline Phosphatase 77 U/L (45-117); Anion Gap 8 (5-15); BUN 15 mg/dL (7-18); BUN/Creat Ratio 21.9 RATIO (10-20); Calcium,Total 9.1 mg/dL (8.5-10.1); Chloride 104 mmol/L (98-107); Creatinine, Serum 0.69 mg/dL (0.55-1.02); EST Glomerular Filtration Rate 93 mL/min (>60); Est Glom Filt Rate - Afr Amer 113 mL/min (>60); Glucose 92 mg/dL (74-106); Potassium 3.6 mmol/L (3.5-5.1); Protein, Total 6.8 g/dL (6.4-8.2); Sodium Level 136 mmol/L (136-145)
== END | disposition home or self-care (01) ==
LOC: MTLAB 11:26
PROVIDERS: PCP Family Medicine; Referring Provider Internal Medicine Rheumatology; Visit Provider Internal Medicine Rheumatology
DX: M06.4 Inflammatory polyarthropathy (principal); M79.7 Fibromyalgia; Z79.899 Other long term (current) drug therapy
CPT/HCPCS: 36415; 80053; 85025

== ENCOUNTER → 2024-05-01 | Outpatient (CLI) | payer OTHER, SELFPAY ==
[2024-05-01 13:13] LABS: Cholesterol 174 mg/dL (200); High Density Lipoprotein 52 mg/dL; Triglycerides 225 mg/dL; Very Low Density Lipoprotein 45 mg/dL (5-40)
== END | disposition home or self-care (01) ==
LOC: VSLAB 09:59
PROVIDERS: PCP Family Medicine; Visit Provider Family Medicine
DX: E11.69 Type 2 diabetes mellitus with other specified complication (principal)
CPT/HCPCS: 36415; 80061; 82043

== ENCOUNTER 2024-05-20 07:48 | Day surgery (SDC) | payer OTHER, SELFPAY ==
[2024-05-20] VITALS (8 sets, daily range): BP systolic 88–131; BP diastolic 55–73; PULSE 66–74; RESP 16; TEMP 36.2–36.3; O2SAT 95–99; BMI 34.1
[2024-05-20 08:29] LABS: Bedside Glucose 93 mg/dL (74-106)
--- NOTE | 2024-05-20 08:34 | PCM.PRE.AN2 ---
ASA Classification* ASA Classification ASA Classification: 2 Assessment & Plan Anesthesia* Anesthesia Assessment Anesthesia Assessment: Discussed sedation and/or anesthesia options, risks, benefits, and alternatives with patient/parents/legal guardian/POA. Questions invited. The patient/parents/legal guardian/POA seems to understand and agrees to proceed with anesthesia plan. Reviewed the physical assessment, medical history, allergy history and patient home medications list prior to surgery/procedure/anesthetic and documented any changes. Performed airway and anesthesia risk assessments. Anesthesia Type Anesthesia Type: MAC History Source History Obtained from:: Patient and Chart Anesthesia Focused Assessment* Temperature: 97.3 F Pulse Rate: 74 Blood Pressure: 131/73 Respiratory Rate: 16 Pulse Ox: 99 Oxygen Delivery Method: Room Air Airway Assessment Mouth opens: >3 cm Mallampati Score: IV Teeth Condition: Intact Neck Range of motion (ROM): Limited ROM (Somewhat decreased extension) Focused Labs Anesthesia Preop lab: CBC WBC 6.0 K/mm3 (4.4-11.0) 04/08/24 11:34 RBC 4.28 M/mm3 (4.2-5.4) 04/08/24 11:34 Hgb 13.1 g/dL (12.0-15.0) 04/08/24 11:34 Hct 39.3 % (37-47) 04/08/24 11:34 Plt Count 230 K/mm3 (150-450) 04/08/24 11:34 CHEMISTRY Potassium 3.6 mmol/L (3.5-5.1) 04/08/24 11:34 Sodium 136 mmol/L (136-145) 04/08/24 11:34 BUN 15 mg/dL (7-18) 04/08/24 11:34 Creatinine 0.69 mg/dL (0.55-1.02) 04/08/24 11:34 Glucose 92 mg/dL (74-106) 04/08/24 11:34 POC Glucose 93 mg/dL (74-106) 05/20/24 08:04 COAG PT 13.5 SECONDS (11.7-14.9) 03/13/24 14:25 Pre-Assessment Diagnosis/Proposed Procedure Planned Operative Procedure(s): COLONOSCOPY-OA Anesthesia History 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 When Was Last Pacemaker Check QUESTION #4 FULL TEXT: You/Your Family Experience fever (hyperthermia) with Anesthesia Last Oral Intake Last Oral intake: Last Oral Intake NPO since 04:00 05/20/24 08:03 Meds taken in AM with sips of Yes 05/20/24 08:03 water? Meds patient instructed to METOPROLOL 05/20/24 08:03 take am of surgery Any additional information?: Yes NPO since: 04:00 (Patient finished prep at 4 AM.) Meds taken in AM with sips of water?: Yes PONV PONV - journeyman patternmaker: PONV - journeyman patternmaker Female Yes 05/19/24 10:36 HX of Motion Sickness No 05/19/24 10:36 HX of N/V After Surgery No 05/19/24 10:36 Non-Smoker Yes 05/19/24 10:36 Duration of Surgery greater No 05/19/24 10:36 than 60 minutes Number of Risk Factors 2 05/19/24 10:36 PONV Score Moderate Risk 05/19/24 10:36 Height & Weight Height & Weight: Anesthesia: Height & Weight Height 5 ft 6 in 05/20/24 08:03 Weight: 96 kg 05/20/24 08:03 Body Mass Index (BMI) 34.1 05/20/24 08:03 Respiratory Assessment Respiratory Assessment - journeyman patternmaker: Respiratory Tract Infection Hx - journeyman patternmaker Hx Respiratory Tract Infection No 05/19/24 10:36 STOP Sleep Apnea STOP Sleep Apnea - journeyman patternmaker: STOP Sleep Apnea - journeyman patternmaker Hx Hypertension Yes: CONTROLLED ON MED 05/19/24 10:36 Hx Sleep Apnea No 05/19/24 10:36 CPAP BIPAP Do you snore loudly (louder No 05/19/24 10:36 than talking or can be heard Do you often feel tired/ No 05/19/24 10:36 fatigued/ sleepy during daytime? Has anyone observed you stop No 05/19/24 10:36 breathing during sleep? STOP Results Negative 05/19/24 10:36 QUESTION #5 FULL TEXT : Do you snore loudly (louder than talking or can be heard through closed doors)? 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 Specify any problems Hx of Preganancy in last 3 No 05/19/24 10:36 Months Nurse Filling Out Transfusion VCHRISTIN 05/19/24 10:36 & Questions: Date: 05/19/24 05/19/24 10:36 Time: 10:37 05/19/24 10:36 Patient unable to answer at this time (ie. confused, unrespo /Reproduction History /Reproductive History - journeyman patternmaker: /Reproductive Hx- journeyman patternmaker Hx Now No 05/19/24 10:36 Gestational Age (in weeks): EDC: Hx Hx Para Hx Section SAB No 05/19/24 10:36 PFSH Medical History Wears glasses Post-menopausal Depression History of steroid therapy Diabetes Rheumatoid arthritis Heartburn Non-smoker History of pain when walking History of edema History of Holter monitoring History of stress test Cardiology follow-up encounter History of irregular heartbeat Family history of colon cancer in mother Tinea pedis Macular rash Verruca plantaris Abnormal stress echocardiogram Leg pain, left Depression HTN (hypertension) Type 2 diabetes mellitus Open back wound Acute sinusitis Home Medications ?Medication ?Instructions ?Recorded ?Last Taken ?Type hydrochlorothiazide 25 mg tablet 25 mg PO DAILY 05/21/23 05/19/24 History lisinopril 10 mg tablet 10 mg PO DAILY 05/21/23 05/19/24 History meloxicam 15 mg tablet 15 mg PO DAILY PRN PRN pain 05/21/23 Unknown History potassium chloride 20 mEq 20 meq PO DAILY 05/21/23 Unknown History tablet,extended release bupropion HCl 300 mg 24 hr tablet, 300 mg PO DAILY 10/12/23 05/19/24 History extended release folic acid 1 mg tablet 2 mg PO DAILY 10/12/23 05/19/24 History gabapentin 100 mg capsule 100 mg PO TID PRN PRN pain 10/12/23 05/19/24 History methotrexate sodium 2.5 mg tablet 20 mg PO SA 10/12/23 05/19/24 History metoprolol succinate 50 mg 50 mg PO QDAY 04/15/24 05/20/24 History tablet,extended release 24 hr prednisone 10 mg tablet 10 mg PO QDAY PRN RA 04/15/24 Unknown History tirzepatide 2.5 mg/0.5 mL 2.5 mg subcut QWEEK 05/06/24 05/08/24 History subcutaneous pen injector (Dennyuntrisharo) Allergy/AdvReac Type Severity Reaction Status Date / Time No Known Allergies Allergy Verified 05/20/24 08:01 Family History Mother Colon cancer Grandmother Breast cancer Maternal Other CVA (cerebral vascular accident) Diabetes Hypertension Surgical History Hx of tubal ligation Hx of cardiac catheterization S/P wisdom tooth extraction Social History household members: none current occupational status: employed 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
--- NOTE | 2024-05-20 08:38 | PRE.ANES_ITS ---
Assessment & Plan Anesthesia* Anesthesia Assessment Anesthesia Assessment: Discussed sedation and/or anesthesia options, risks, benefits, and alternatives with patient/parents/legal guardian/POA. Questions invited. The patient/parents/legal guardian/POA seems to understand and agrees to proceed with anesthesia plan. Reviewed the physical assessment, medical history, allergy history and patient home medications list prior to surgery/procedure/anesthetic and documented any changes. Performed airway and anesthesia risk assessments. Anesthesia Focused Assessment* Temperature: 97.3 F Pulse Rate: 74 Blood Pressure: 131/73 Respiratory Rate: 16 Pulse Ox: 99 Focused Labs Anesthesia Preop lab: CBC WBC 6.0 K/mm3 (4.4-11.0) 04/08/24 11:34 RBC 4.28 M/mm3 (4.2-5.4) 04/08/24 11:34 Hgb 13.1 g/dL (12.0-15.0) 04/08/24 11:34 Hct 39.3 % (37-47) 04/08/24 11:34 Plt Count 230 K/mm3 (150-450) 04/08/24 11:34 CHEMISTRY Potassium 3.6 mmol/L (3.5-5.1) 04/08/24 11:34 Sodium 136 mmol/L (136-145) 04/08/24 11:34 BUN 15 mg/dL (7-18) 04/08/24 11:34 Creatinine 0.69 mg/dL (0.55-1.02) 04/08/24 11:34 Glucose 92 mg/dL (74-106) 04/08/24 11:34 POC Glucose 93 mg/dL (74-106) 05/20/24 08:04 COAG PT 13.5 SECONDS (11.7-14.9) 03/13/24 14:25 Pre-Assessment Diagnosis/Proposed Procedure Planned Operative Procedure(s): COLONOSCOPY-OA Anesthesia History Anesthesia History - bottle filler: Anesthesia History - bottle filler Hx Hospitalization No 05/19/24 10:36 Any Problems With Anesthesia No 05/19/24 10:36 Cholinesterase deficiency No 05/19/24 10:36 You/Your Family Experience No 05/19/24 10:36 fever (hyperthermia) with Relationship Recent Exposure to Contagious No 05/20/24 08:03 Disease Does patient have nerve No 05/19/24 10:36 stimulator Patient instructed to have device shut off --Does patient have Pacemaker No 05/20/24 08:03 or ICD? When Was Last Pacemaker Check QUESTION #4 FULL TEXT: You/Your Family Experience fever (hyperthermia) with Anesthesia Last Oral Intake Last Oral intake: Last Oral Intake NPO since 04:00 05/20/24 08:03 Meds taken in AM with sips of Yes 05/20/24 08:03 water? Meds patient instructed to METOPROLOL 05/20/24 08:03 take am of surgery PONV PONV - bottle filler: PONV - bottle filler Female Yes 05/19/24 10:36 HX of Motion Sickness No 05/19/24 10:36 HX of N/V After Surgery No 05/19/24 10:36 Non-Smoker Yes 05/19/24 10:36 Duration of Surgery greater No 05/19/24 10:36 than 60 minutes Number of Risk Factors 2 05/19/24 10:36 PONV Score Moderate Risk 05/19/24 10:36 Height & Weight Height & Weight: Anesthesia: Height & Weight Height 5 ft 6 in 05/20/24 08:03 Weight: 96 kg 05/20/24 08:03 Body Mass Index (BMI) 34.1 05/20/24 08:03 Respiratory Assessment Respiratory Assessment - bottle filler: Respiratory Tract Infection Hx - bottle filler Hx Respiratory Tract Infection No 05/19/24 10:36 STOP Sleep Apnea STOP Sleep Apnea - bottle filler: STOP Sleep Apnea - bottle filler Hx Hypertension Yes: CONTROLLED ON MED 05/19/24 10:36 Hx Sleep Apnea No 05/19/24 10:36 CPAP BIPAP Do you snore loudly (louder No 05/19/24 10:36 than talking or can be heard Do you often feel tired/ No 05/19/24 10:36 fatigued/ sleepy during daytime? Has anyone observed you stop No 05/19/24 10:36 breathing during sleep? STOP Results Negative 05/19/24 10:36 QUESTION #5 FULL TEXT : Do you snore loudly (louder than talking or can be heard through closed doors)? 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 Specify any problems Hx of Preganancy in last 3 No 05/19/24 10:36 Months Nurse Filling Out Transfusion VCHRISTIN 05/19/24 10:36 & Questions: Date: 05/19/24 05/19/24 10:36 Time: 10:37 05/19/24 10:36 Patient unable to answer at this time (ie. confused, unrespo /Reproduction History /Reproductive History - bottle filler: /Reproductive Hx- bottle filler Hx Now No 05/19/24 10:36 Gestational Age (in weeks): EDC: Hx Hx Para Hx Section SAB No 05/19/24 10:36 PFSH Medical History Wears glasses Post-menopausal Depression History of steroid therapy Diabetes Rheumatoid arthritis Heartburn Non-smoker History of pain when walking History of edema History of Holter monitoring History of stress test Cardiology follow-up encounter History of irregular heartbeat Family history of colon cancer in mother Tinea pedis Macular rash Verruca plantaris Abnormal stress echocardiogram Leg pain, left Depression HTN (hypertension) Type 2 diabetes mellitus Open back wound Acute sinusitis Home Medications ?Medication ?Instructions ?Recorded ?Last Taken ?Type hydrochlorothiazide 25 mg tablet 25 mg PO DAILY 05/21/23 05/19/24 History lisinopril 10 mg tablet 10 mg PO DAILY 05/21/23 05/19/24 History meloxicam 15 mg tablet 15 mg PO DAILY PRN PRN pain 05/21/23 Unknown History potassium chloride 20 mEq 20 meq PO DAILY 05/21/23 Unknown History tablet,extended release bupropion HCl 300 mg 24 hr tablet, 300 mg PO DAILY 10/12/23 05/19/24 History extended release folic acid 1 mg tablet 2 mg PO DAILY 10/12/23 05/19/24 History gabapentin 100 mg capsule 100 mg PO TID PRN PRN pain 10/12/23 05/19/24 History methotrexate sodium 2.5 mg tablet 20 mg PO SA 10/12/23 05/19/24 History metoprolol succinate 50 mg 50 mg PO QDAY 04/15/24 05/20/24 History tablet,extended release 24 hr prednisone 10 mg tablet 10 mg PO QDAY PRN RA 04/15/24 Unknown History tirzepatide 2.5 mg/0.5 mL 2.5 mg subcut QWEEK 05/06/24 05/08/24 History subcutaneous pen injector (Carmen) Allergy/AdvReac Type Severity Reaction Status Date / Time No Known Allergies Allergy Verified 05/20/24 08:01 Family History Mother Colon cancer Grandmother Breast cancer Maternal Other CVA (cerebral vascular accident) Diabetes Hypertension Surgical History Hx of tubal ligation Hx of cardiac catheterization S/P wisdom tooth extraction Social History household members: none current occupational status: employed 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
--- NOTE | 2024-05-20 09:13 | PCM.HP.STD ---
HPI - General General Date of Admission: 05/20/24 Date of Service: 05/20/24 Chief Complaint: Screening colonoscopy HPI Narrative NO HORNER, is a 58 F who presents today for screening colonoscopy. She has never had a colonoscopy previously. Her mother had colon cancer in her 80s. She herself denies any GI issues or complaints. No blood in her stools. No black or tarry stools. No issues with constipation or diarrhea. [facility] Medical History Wears glasses Post-menopausal Depression History of steroid therapy Diabetes Rheumatoid arthritis Heartburn Non-smoker History of pain when walking History of edema History of Holter monitoring History of stress test Cardiology follow-up encounter History of irregular heartbeat Family history of colon cancer in mother Tinea pedis Macular rash Verruca plantaris Abnormal stress echocardiogram Leg pain, left Depression HTN (hypertension) Type 2 diabetes mellitus Open back wound Acute sinusitis Home Medications ?Medication ?Instructions ?Recorded ?Last Taken ?Type hydrochlorothiazide 25 mg tablet 25 mg PO DAILY 05/21/23 05/19/24 History lisinopril 10 mg tablet 10 mg PO DAILY 05/21/23 05/19/24 History meloxicam 15 mg tablet 15 mg PO DAILY PRN PRN pain 05/21/23 Unknown History potassium chloride 20 mEq 20 meq PO DAILY 05/21/23 Unknown History tablet,extended release bupropion HCl 300 mg 24 hr tablet, 300 mg PO DAILY 10/12/23 05/19/24 History extended release folic acid 1 mg tablet 2 mg PO DAILY 10/12/23 05/19/24 History gabapentin 100 mg capsule 100 mg PO TID PRN PRN pain 10/12/23 05/19/24 History methotrexate sodium 2.5 mg tablet 20 mg PO SA 10/12/23 05/19/24 History metoprolol succinate 50 mg 50 mg PO QDAY 04/15/24 05/20/24 History tablet,extended release 24 hr prednisone 10 mg tablet 10 mg PO QDAY PRN RA 04/15/24 Unknown History tirzepatide 2.5 mg/0.5 mL 2.5 mg subcut QWEEK 05/06/24 05/08/24 History subcutaneous pen injector (Mounjaro) Allergy/AdvReac Type Severity Reaction Status Date / Time No Known Allergies Allergy Verified 05/20/24 08:01 Family History Mother Colon cancer Grandmother Breast cancer Maternal Other CVA (cerebral vascular accident) Diabetes Hypertension Surgical History Hx of tubal ligation Hx of cardiac catheterization S/P wisdom tooth extraction Social History household members: none current occupational status: employed current occupation: [employer] Smoking Status: Never smoker alcohol intake: never substance use type: does not use seatbelt use: always do you feel safe at home: Yes ROS Constitutional Constitutional: Reports systems reviewed and no addt'l complaints, except as documented Eyes Eyes: Reports systems reviewed and no addt'l complaints, except as documented ENT HEENT: Reports systems reviewed and no addt'l complaints, except as documented Cardiovascular Cardiovascular: Reports systems reviewed and no addt'l complaints, except as documented Respiratory/Chest Respiratory/Chest: Reports systems reviewed and no addt'l complaints, except as documented Gastrointestinal Gastrointestinal: Reports systems reviewed and no addt'l complaints, except as documented Genitourinary Genitourinary: Reports systems reviewed and no addt'l complaints, except as documented Musculoskeletal Musculoskeletal: Reports systems reviewed and no addt'l complaints, except as documented Integumentary Integumentary: Reports systems reviewed and no addt'l complaints, except as documented Vital Signs Vital Signs Vital Signs: 05/20/24 08:03 05/20/24 08:03 05/20/24 08:39 Temperature 97.3 F L 97.3 F L Temperature Source Temporal Pulse Rate 74 74 Respiratory Rate 16 16 Respiratory Pattern Normal Blood Pressure 131/73 H 131/73 H Blood Pressure Mean 92 Blood Pressure Source Monitor Blood Pressure Position Sitting Blood Pressure Location Left Arm Pulse Ox 99 99 Oxygen Delivery Method Room Air Room Air Weight Weight: 211 lb 10.3 oz Body Mass Index (BMI) 34.1 Physical Exam Const alert, oriented x3 and no apparent distress HEENT normocephalic Eyes PERRL Neck full ROM Resp normal respiratory effort Results Lab / Micro Data Labs: Laboratory Results - last 24 hr 11/19/24 08:04: POC Glucose 93 Assessment & Plan Assessment/Plan (1) Encounter for screening for malignant neoplasm of colon: PLAN: Plan The patient is a 58-year-old female with a family history of colon cancer in her mother in her 80s. She is here today for screening colonoscopy. We discussed the details of the planned procedure including risk benefits and alternatives. She wishes to proceed. This will begin momentarily Charges/Coding Visit Charges Inpatient E&M: 47222 Init Hosp L1
--- NOTE | 2024-05-20 09:48 | OP.CCLET_ITS ---
05/20/2024 Amparo Bills Do Re : Colonoscopy procedure for Kayley Granda Dear Sanju This procedure was performed on Monday, May 20, 2024. My impressions and recommendations are as follows: Impressions : - The entire examined colon is normal on direct and retroflexion views. - No specimens collected. Recommendations : - Discharge patient to home (ambulatory). - High fiber diet. - Repeat colonoscopy in 7-10 years for screening purposes. - Return to my office PRN. - Continue present medications. My findings are described in the full procedure note, which is enclosed. If I can be of further assistance, please feel free to contact me at . Sincerely, Constantino Tom MD 05/20/2024 9:47:54 AM This report has been signed electronically.
--- NOTE | 2024-05-20 09:48 | OP.COLON_ITS ---
Patient Name: Kayley Granda Procedure Date: 05/20/2024 8:39 AM Date of : 1965 Age: 58 Procedure: Colonoscopy Indications: Screening patient at increased risk: Family history of 1st-degree relative with colorectal cancer at age 60 years (or older) Providers: Constantino Tom MD Referring MD: Amparo Bills Do Medicines: Monitored Anesthesia Care Patient Profile: Refer to note in patient chart for documentation of history and physical. Last Colonoscopy: none. The patient's first colonoscopy is today. Complications: No immediate complications. Estimated blood loss: None. Procedure: Pre-Anesthesia Assessment: - Prior to the procedure, a History and Physical was performed, and patient medications and allergies were reviewed. The patient's tolerance of previous anesthesia was also reviewed. The risks and benefits of the procedure and the sedation options and risks were discussed with the patient. All questions were answered, and informed consent was obtained. Prior Anticoagulants: The patient has taken no anticoagulant or antiplatelet agents. ASA Grade Assessment: II - A patient with mild systemic disease. After reviewing the risks and benefits, the patient was deemed in satisfactory condition to undergo the procedure. After I obtained informed consent, the scope was passed under direct vision. Throughout the procedure, the patient's blood pressure, pulse, and oxygen saturations were monitored continuously. The adult colonoscope was introduced through the anus and advanced to the cecum, identified by appendiceal orifice and ileocecal valve. The ileocecal valve, appendiceal orifice, and rectum were photographed. The entire colon was well visualized. The colonoscopy was performed without difficulty. The patient tolerated the procedure well. The quality of the bowel preparation was adequate. Moderate Sedation: See the other procedure note for documentation of moderate sedation with intraservice time. Scope In: 9:22:29 AM Scope Withdrawal Time 0 hours 8 minutes 1 second Scope Out: 9:40:31 AM Total Procedure Duration Time 0 hours 18 minutes 2 seconds Findings: The perianal and digital rectal examinations were normal. The entire examined colon appeared normal on direct and retroflexion views. Estimated blood loss: none. Impression: - The entire examined colon is normal on direct and retroflexion views. - No specimens collected. Recommendation: - Discharge patient to home (ambulatory). - High fiber diet. - Repeat colonoscopy in 7-10 years for screening purposes. - Return to my office PRN. - Continue present medications. Procedure Code(s): --- Professional --- G0105, Colorectal cancer screening; colonoscopy on individual at high risk Diagnosis Code(s): --- Professional --- Z80.0, Family history of malignant neoplasm of digestive organs CPT copyright 2021 [employer]. All rights reserved. The codes documented in this report are preliminary and upon steel fabricating supervisor review may be revised to meet current compliance requirements. Constantino Tom MD 05/20/2024 9:47:54 AM This report has been signed electronically. Number of Addenda: 0 Note Initiated On: 05/20/2024 8:39 AM
--- NOTE | 2024-05-20 09:48 | PCM.POST.ANE ---
Anesthesia: Postop Eval I Current Vital Signs Temperature: 97.1 F Pulse Rate: 66 Blood Pressure: 88/55 Respiratory Rate: 16 Pulse Ox: 97 Oxygen Delivery Method: Room Air Assessment Airway patent: Yes Spontaneous unlabored respirations: Yes Mental status: Asleep nausea: No Vomiting: No Anesthesia Complication: No Fluid Hydration Crystalloid volume administer (ml): 60 Total IV fluid infused: 60 Progress Note Anesthesia document: Postop Eval 1 completed: Yes
--- NOTE | 2024-05-20 15:50 | PCM.POSTANE2 ---
Anesthesia Postop Eval I Sum Postop Eval Completion status Anesthesia document: Postop Eval 1 completed: Yes Anesthesia Postop Eval I Summary Anesthesia Postop Eval I Summary: Anesthesia Postop Eval I: Assessment Summary Airway patent Yes 05/20/24 09:49 [email or web address] Spontaneous unlabored Yes 05/20/24 09:49 [email or web address] respirations Mental status Asleep 05/20/24 09:49 [email or web address] nausea No 05/20/24 09:49 [email or web address] Vomiting No 05/20/24 09:49 [email or web address] Anesthesia Postop Eval I: Fluid Summary Crystalloid volume administer 60 05/20/24 09:49 [email or web address] (ml) Colloids volume administered ( ml) Blood Product volume administered (ml) Total IV fluid infused 60 05/20/24 09:49 [email or web address] Anesthesia Postop Eval I: Summary Notes Anesthesia Complication No 05/20/24 09:49 [email or web address] Anesthesia Complication Comment: Post-operative progress note Anesthesia: Postop Eval II Evaluation Mental status: Awake and Calm Pain Level: 0 nausea: No Vomiting: No Complications Anesthesia Complication: No
== END 2024-05-20 10:32 | disposition home or self-care (01) ==
LOC: EN 07:49 → AC 07:50
PROVIDERS: PCP Family Medicine; Referring Provider Family Medicine; Visit Provider Surgery
PROC: 0DJD8ZZ Inspection of Lower Intestinal Tract, Via Natural or Artificial Opening Endoscopic (ICD-10-PCS; CPT 45378; principal; 2024-05-20 08:55)
DX: Z12.11 Encounter for screening for malignant neoplasm of colon (principal); E11.9 Type 2 diabetes mellitus without complications; I10 Essential (primary) hypertension; Z80.0 Family history of malignant neoplasm of digestive organs; Z79.85 Long-term (current) use of injectable non-insulin antidiabetic drugs; Z79.899 Other long term (current) drug therapy
CPT/HCPCS: 45378; 82962; A4216; J2405

== ENCOUNTER → 2024-06-24 | Outpatient (CLI) | payer OTHER, SELFPAY ==
[2024-06-24 13:24] LABS: Absolute Lymphocyte Count 1.43 X10^3/uL (0.83-4.51); Absolute Neutrophil Count 5.3 X10^3/uL (2.0-7.7); Basophil# 0.06 X10^3/uL; Basophil% 0.8 % (0-1); Eosinophil# 0.09 X10^3/uL; Eosinophils% 1.2 % (0-5); Hematocrit 41.3 % (37-47); Hemoglobin 14.4 g/dL (12.0-15.0); Lymphocyte # 1.43 X10^3/ul (0.83-4.51); Lymphocyte % 19.6 % (19-41); Mean Corp Hgb Conc 34.9 g/dL (32-36); Mean Corpuscular Hgb 30.9 pg (27.0-32.0); Mean Corpuscular Volume 88.6 fL (81-99); Mean Platelet Vol. 9.5 fl (6.2-12.0); Monocyte# 0.37 X10^3/uL; Monocyte% 5.1 % (0-10); NRBC Flagged by Analyzer 0 % (0-5); Neutrophil # 5.31 X10^3/uL (2.7-7.7); Neutrophil % 72.9 % (47-70); Platelet Count 276 K/mm3 (150-450); RBC Distribution Width SD 41.9 fl (35.1-43.9); Red Blood Count 4.66 M/mm3 (4.2-5.4); White Blood Count 7.3 K/mm3 (4.4-11.0)
[2024-06-24 13:51] LABS: ALB/GLOB Ratio 1.2 RATIO (0.9-2.4); AST(SGOT) 28 U/L (15-37); Alanine Aminotransfer ALT/SGPT 32 U/L (13-56); Albumin, Serum 4.1 g/dL (3.2-5.0); Alkaline Phosphatase 87 U/L (45-117); Anion Gap 8 (5-15); BUN 15 mg/dL (7-18); BUN/Creat Ratio 14.2 RATIO (10-20); Chloride 102 mmol/L (98-107); Creatinine, Serum 1.06 mg/dL (0.55-1.02); EST Glomerular Filtration Rate 57 mL/min (>60); Est Glom Filt Rate - Afr Amer 68 mL/min (>60); Globulin 3.3 g/dL (2.2-4.2); Glucose 107 mg/dL (74-106); Potassium 3.4 mmol/L (3.5-5.1); Protein, Total 7.4 g/dL (6.4-8.2); Sodium Level 136 mmol/L (136-145)
== END | disposition home or self-care (01) ==
LOC: LAB 12:44
PROVIDERS: PCP Family Medicine; Referring Provider Internal Medicine Rheumatology; Visit Provider Internal Medicine Rheumatology
DX: M06.4 Inflammatory polyarthropathy (principal); E11.9 Type 2 diabetes mellitus without complications; M25.551 Pain in right hip; M79.7 Fibromyalgia; I10 Essential (primary) hypertension; F32.A Depression, unspecified
CPT/HCPCS: 36415; 80053; 85025

== ENCOUNTER → 2024-07-01 | Outpatient (CLI) | payer OTHER, SELFPAY ==
--- NOTE | 2024-07-01 09:07 | RAD_ITS ---
STUDY: X-RAY - LEFT KNEE REASON FOR EXAM: Female, 58 years old. PAIN TECHNIQUE: 4 view(s) of the knee. COMPARISON: None. FINDINGS: Normal visualized distal femur. Normal visualized proximal tibia and fibula. Normal proximal tibiofibular articulation. Normal medial femorotibial compartment. Normal lateral femorotibial compartment. Normal patellofemoral articulation. The soft tissue structures are unremarkable. RAD/Knee 4 or More Views IMPRESSION: Normal x-ray examination of the knee. Electronically Signed: Ab Becker MD at 21:58 EST ,
--- NOTE | 2024-07-01 09:07 | RAD_ITS ---
STUDY: X-RAY - RIGHT KNEE REASON FOR EXAM: Female, 58 years old. PAIN TECHNIQUE: 4 view(s) of the knee. COMPARISON: None. FINDINGS: Normal visualized distal femur. Normal visualized proximal tibia and fibula. Normal proximal tibiofibular articulation. Normal medial femorotibial compartment. Normal lateral femorotibial compartment. Normal patellofemoral articulation. The soft tissue structures are unremarkable. RAD/Knee 4 or More Views IMPRESSION: Normal x-ray examination of the knee. Electronically Signed: Ab Becker MD at 21:59 EST ,
== END | disposition home or self-care (01) ==
LOC: MTRAD 09:06
PROVIDERS: PCP Family Medicine; Referring Provider Internal Medicine Rheumatology; Visit Provider Internal Medicine Rheumatology
DX: M06.4 Inflammatory polyarthropathy (principal); E11.9 Type 2 diabetes mellitus without complications; M25.551 Pain in right hip; M79.7 Fibromyalgia; I10 Essential (primary) hypertension; F32.A Depression, unspecified
CPT/HCPCS: 73564

== ENCOUNTER → 2024-07-08 | Outpatient (CLI) | payer OTHER, SELFPAY ==
[2024-07-08 12:40] LABS: Absolute Lymphocyte Count 1.21 X10^3/uL (0.83-4.51); Basophil# 0.06 X10^3/uL; Basophil% 0.8 % (0-1); Eosinophil# 0.13 X10^3/uL; Eosinophils% 1.6 % (0-5); Lymphocyte # 1.21 X10^3/ul (0.83-4.51); Lymphocyte % 15.4 % (19-41); Mean Corp Hgb Conc 34.1 g/dL (32-36); Mean Corpuscular Hgb 30.2 pg (27.0-32.0); Mean Corpuscular Volume 88.7 fL (81-99); Mean Platelet Vol. 9.1 fl (6.2-12.0); Monocyte# 0.51 X10^3/uL; Monocyte% 6.5 % (0-10); NRBC Flagged by Analyzer 0 % (0-5); Neutrophil # 5.96 X10^3/uL (2.7-7.7); Neutrophil % 75.6 % (47-70); Platelet Count 248 K/mm3 (150-450); RBC Distribution Width CV 13.2 % (11.6-14.6); RBC Distribution Width SD 42.5 fl (35.1-43.9); Red Blood Count 4.96 M/mm3 (4.2-5.4); White Blood Count 7.9 K/mm3 (4.4-11.0)
[2024-07-08 13:08] LABS: Vitamin B12 314 pg/mL (211-911)
[2024-07-08 13:16] LABS: ALB/GLOB Ratio 1.1 RATIO (0.9-2.4); AST(SGOT) 18 U/L (15-37); Alanine Aminotransfer ALT/SGPT 30 U/L (13-56); Albumin, Serum 4.1 g/dL (3.2-5.0); Alkaline Phosphatase 88 U/L (45-117); Anion Gap 6 (5-15); BUN 22 mg/dL (7-18); BUN/Creat Ratio 26.1 RATIO (10-20); Calcium,Total 9.1 mg/dL (8.5-10.1); Chloride 104 mmol/L (98-107); Creatinine, Serum 0.84 mg/dL (0.55-1.02); EST Glomerular Filtration Rate 74 mL/min (>60); Est Glom Filt Rate - Afr Amer 89 mL/min (>60); Ferritin 188 ng/mL (8-252); Globulin 3.6 g/dL (2.2-4.2); Glucose 93 mg/dL (74-106); Magnesium 2.5 mg/dL (1.6-2.6); Potassium 3.4 mmol/L (3.5-5.1); Protein, Total 7.7 g/dL (6.4-8.2); Sodium Level 135 mmol/L (136-145)
== END | disposition home or self-care (01) ==
LOC: VSLAB 10:27
PROVIDERS: PCP Family Medicine; Visit Provider Family Medicine
DX: R25.1 Tremor, unspecified (principal)
CPT/HCPCS: 36415; 80053; 82607; 82728; 83735; 84443; 85025

== ENCOUNTER → 2024-09-23 | Outpatient (CLI) | payer OTHER, SELFPAY ==
[2024-09-23 15:53] LABS: Absolute Lymphocyte Count 1.15 X10^3/uL (0.83-4.51); Absolute Neutrophil Count 3.9 X10^3/uL (2.0-7.7); Basophil# 0.04 X10^3/uL; Basophil% 0.7 % (0-1); Eosinophil# 0.58 X10^3/uL; Eosinophils% 9.8 % (0-5); Hemoglobin 13.9 g/dL (12.0-15.0); Lymphocyte # 1.15 X10^3/ul (0.83-4.51); Lymphocyte % 19.4 % (19-41); Mean Corp Hgb Conc 33.1 g/dL (32-36); Mean Corpuscular Volume 90.5 fL (81-99); Mean Platelet Vol. 9.6 fl (6.2-12.0); Monocyte# 0.29 X10^3/uL; Monocyte% 4.9 % (0-10); NRBC Flagged by Analyzer 0 % (0-5); Neutrophil # 3.85 X10^3/uL (2.7-7.7); Platelet Count 225 K/mm3 (150-450); RBC Distribution Width CV 13.2 % (11.6-14.6); RBC Distribution Width SD 43.3 fl (35.1-43.9); Red Blood Count 4.64 M/mm3 (4.2-5.4); White Blood Count 5.9 K/mm3 (4.4-11.0)
[2024-09-23 17:23] LABS: ALB/GLOB Ratio 1.6 RATIO (0.9-2.4); AST(SGOT) 37 U/L (<=31); Alanine Aminotransfer ALT/SGPT 24 U/L (<=34); Albumin, Serum 4.2 g/dL (3.5-5.0); Alkaline Phosphatase 76 U/L (35-104); Anion Gap 13 (5-15); BUN 14 mg/dL (4-19); BUN/Creat Ratio 16.3 RATIO (10-20); Calcium,Total 9.3 mg/dL (7.6-11.0); Carbon Dioxide 23.7 mmol/L (21.0-32.0); Chloride 107 mmol/L (98-108); Creatinine, Serum 0.86 mg/dL (0.70-1.20); EST Glomerular Filtration Rate 79 (>60); Globulin 2.7 g/dL (2.2-4.2); Glucose 163 mg/dL (70-99); Potassium 3.4 mmol/L (3.3-5.1); Protein, Total 6.9 g/dL (5.9-8.4); Sodium Level 143 mmol/L (133-145); Total Bilirubin 0.54 mg/dL (0.00-1.30)
== END | disposition home or self-care (01) ==
LOC: MTLAB 10:10
PROVIDERS: PCP Family Medicine; Referring Provider Internal Medicine Rheumatology; Visit Provider Internal Medicine Rheumatology
DX: M06.4 Inflammatory polyarthropathy (principal); M79.7 Fibromyalgia; Z79.899 Other long term (current) drug therapy
CPT/HCPCS: 36415; 80053; 85025